=== PATIENT | female | born 1985 | race Caucasian/White ===

== ENCOUNTER 2021-01-18 08:48 | Outpatient (REF) | payer MEDICAID, OTHER, SELFPAY ==
--- NOTE | ~2021-01-18 | US_ITS ---
EXAMINATION: US PELVIS CLINICAL INFORMATION: Right lower quadrant abdominal tenderness. COMPARISON: None TECHNIQUE: Ultrasound of the pelvis is performed using both transabdominal and transvaginal transducers along with Doppler. Transvaginal imaging is performed due to inadequate visualization transabdominally. FINDINGS: The uterus is anteverted and anteflexed measuring 8.4 cm in length, 4.3 cm in AP and 5.3 cm transverse dimension. There is an IUD located within the endometrial canal. The IUD limits evaluation of the endometrial stripe. There are small nabothian cysts seen in the cervix. The right ovary measures 3.22 x 3.32 x 3.00 cm and volume 16.8 mL. There is anechoic simple cyst measuring 1.5 x 1.7 x 1.8 cm. The left ovary measures 3.04 x 1.56 x 2.38 cm and volume 5.91 mL. Left ovary appears unremarkable. There is increased vascular flow seen in the right adnexa likely pelvic venous congestion. There is no free fluid in the cul-de-sac. US/US pelvic and transvaginal IMPRESSION: IUD in correct place within the endometrial canal. Multiple small nabothian cysts in the cervix. Simple cyst right ovary.
== END 2021-01-18 08:49 | disposition home or self-care (01) ==
LOC: HO.HMGCX 08:48
PROVIDERS: PCP Student in an Organized Health Care Education/Training Program; Visit Provider Advanced Practice Midwife
DX: R10.813 Right lower quadrant abdominal tenderness (principal)
CPT/HCPCS: 76830; 76856

== ENCOUNTER 2022-03-17 10:26 | Outpatient (REF) | payer MEDICAID, OTHER, SELFPAY ==
--- NOTE | ~2022-03-17 | US_ITS ---
EXAMINATION: US ABDOMEN LIMITED CLINICAL INFORMATION: Right lower quadrant tenderness. COMPARISON: Ultrasound abdomen limited 11/11/2019. TECHNIQUE: Real-time imaging of the right lower quadrant as indicated by patient. FINDINGS: No abnormalities identified in the right lower quadrant patient's area of concern. There are no cystic or solid masses. There are no fluid collections. There is no subcutaneous edema. No hernia is identified. US/US abdomen limited IMPRESSION: Unremarkable examination.
== END 2022-03-17 10:27 | disposition home or self-care (01) ==
LOC: HO.HMGCX 10:26
PROVIDERS: Visit Provider Pediatrics
DX: R10.813 Right lower quadrant abdominal tenderness (principal)
CPT/HCPCS: 76705

== ENCOUNTER 2022-12-26 14:40 | Outpatient (REF) | payer MEDICAID, OTHER, SELFPAY ==
[2022-12-28 21:53] LABS: HPV mRNA E6/E7 rflx Detected (Not Detected)
[2023-01-02 17:33] LABS: HPV 16 RNA NOT DETECTED (NOT DETECTED)
== END 2022-12-26 14:41 | disposition home or self-care (01) ==
LOC: HO.HHCLNP 14:40
PROVIDERS: Visit Provider Advanced Practice Midwife
DX: Z12.4 Encounter for screening for malignant neoplasm of cervix (principal); Z11.51 Encounter for screening for human papillomavirus (HPV)
CPT/HCPCS: 87624; 87625; 88142

== ENCOUNTER 2023-05-14 11:34 | Outpatient (REF) | payer MEDICAID, OTHER, SELFPAY ==
[2023-05-15 07:16] LABS: ~HepC Num1 0.11 S/CO (0.00-0.79); ~Hepatitis C Antibody Nonreactive (Nonreactive)
[2023-05-17 18:44] LABS: HIV RNA PCR Qn Copies Not Detected Copies/mL; HIV RNA PCR Qn Log Copies Not Detected Log cps/mL
== END 2023-05-14 11:35 | disposition home or self-care (01) ==
LOC: HO.HMGCLDS 11:34
PROVIDERS: PCP Student in an Organized Health Care Education/Training Program; Visit Provider Student in an Organized Health Care Education/Training Program
DX: Z00.00 Encounter for general adult medical examination without abnormal findings (principal); Z11.4 Encounter for screening for human immunodeficiency virus [HIV]; R73.03 Prediabetes
CPT/HCPCS: 36415; 80048; 80061; 80076; 83036; 86803; 87536; 87900

== ENCOUNTER 2023-09-10 13:22 | Outpatient (REF) | payer MEDICAID, OTHER, SELFPAY ==
[2023-09-11 23:13] LABS: C. trachomatis RNA TMA NOT DETECTED (NOT DETECTED); N. gonorrhoeae RNA TMA NOT DETECTED (NOT DETECTED)
== END 2023-09-10 13:23 | disposition home or self-care (01) ==
LOC: HO.CHCLNP 13:22
PROVIDERS: Visit Provider Student in an Organized Health Care Education/Training Program
DX: N93.9 Abnormal uterine and vaginal bleeding, unspecified (principal)
CPT/HCPCS: 36415; 81513; 87491; 87591

== ENCOUNTER 2023-09-11 09:01 | Outpatient (REF) | payer MEDICAID, OTHER, SELFPAY ==
[2023-09-11 10:34] LABS: Estimated Average Glucose 303 mg/dL; Hemoglobin A1c % 12.2 % (<6.0)
[2023-09-11 10:53] LABS: Alanine Aminotransferase 25 U/L (0-31); Alkaline Phosphatase 64 U/L (39-117); Anion Gap 15 (12-20); Aspartate Amino Transferase 16 U/L (5-31); Bilirubin Direct 0.1 mg/dL (0.0-0.5); Bilirubin Total 0.4 mg/dL (0.0-1.0); Blood Urea Nitrogen 9 mg/dL (9-16); Calcium 9.8 mg/dL (8.4-10.2); Carbon Dioxide 24 mmol/L (22-29); Chloride 102 mmol/L (96-108); Cholesterol 197 mg/dL (<200); Estimated Glomerular Filt Rate > 60; Glucose Random 341 mg/dL (60-115); HDL Cholesterol 35 mg/dL (>40); LDL Cholesterol Calculated 128 mg/dL (<100); Potassium 4.1 mmol/L (3.3-5.1); Sodium 137 mmol/L (135-145); Total Protein 7.7 g/dL (6.5-8.0); Triglycerides 170 mg/dL (<150)
== END 2023-09-11 09:02 | disposition home or self-care (01) ==
LOC: HO.HMGCLDS 09:01
PROVIDERS: PCP Student in an Organized Health Care Education/Training Program; Visit Provider Student in an Organized Health Care Education/Training Program
DX: R73.03 Prediabetes (principal)
CPT/HCPCS: 36415; 80048; 80061; 80076; 83036

== ENCOUNTER 2023-09-26 17:04 | Outpatient (REF) | payer MEDICAID, OTHER, SELFPAY ==
[2023-09-27 11:21] LABS: Bacterial Vaginosis PCR NEGATIVE (Negative); Candida Group PCR DETECTED (Not Detect); Candida glab krusei PCR NOT DETECTED (Not Detect); Trichomonas vaginalis PCR NOT DETECTED (Not Detect)
== END 2023-09-26 17:05 | disposition home or self-care (01) ==
LOC: HO.HHCLNP 17:04
PROVIDERS: Visit Provider Advanced Practice Midwife
DX: N89.8 Other specified noninflammatory disorders of vagina (principal)
CPT/HCPCS: 0352U

== ENCOUNTER 2023-10-23 11:27 | Outpatient (REF) | payer MEDICAID, OTHER, SELFPAY ==
--- NOTE | ~2023-10-23 | US_ITS ---
EXAMINATION: US PELVIS CLINICAL INFORMATION: Vaginal bleeding. COMPARISON: 01/18/2021. TECHNIQUE: Ultrasound of the pelvis is performed using both transabdominal and transvaginal transducers along with Doppler. Transvaginal imaging is performed due to inadequate visualization transabdominally. FINDINGS: The uterus is anteverted and measures 8.1 x 2.4 x 3.8 cm. No discrete fibroid identified. Limited visualization of the uterus, particularly the fundus, due to bowel gas and positioning. Endometrial thickness is 5 mm. No significant free fluid. Right ovary measures 2.3 x 1.8 x 1.8 cm, volume 4.0 mL. Left ovary measures 3.1 x 1.9 x 2.2 cm, volume 13.0 mL. Visualization of bilateral ovaries limited due to bowel gas. No significant free fluid. US/US pelvic and transvaginal IMPRESSION: 1. Endometrial thickness is 5 mm. 2. No discrete fibroid identified. 3. Visualization of the uterus, particularly the fundus, due to bowel gas and positioning. 4. Visualization of bilateral ovaries limited due to bowel gas. Left ovary is larger than right. 5. No significant free fluid.
== END 2023-10-23 11:28 | disposition home or self-care (01) ==
LOC: HO.US 11:27
PROVIDERS: PCP Student in an Organized Health Care Education/Training Program; Visit Provider Student in an Organized Health Care Education/Training Program
DX: N93.9 Abnormal uterine and vaginal bleeding, unspecified (principal)
CPT/HCPCS: 76830; 76856

== ENCOUNTER 2023-12-31 16:34 | Outpatient (REF) | payer MEDICAID, OTHER, SELFPAY ==
[2024-01-02 11:13] LABS: HPV mRNA E6/E7 Not Detected (Not Detected)
== END 2023-12-31 16:35 | disposition home or self-care (01) ==
LOC: HO.HHCLNP 16:34
PROVIDERS: Visit Provider Advanced Practice Midwife
DX: Z12.4 Encounter for screening for malignant neoplasm of cervix (principal)
CPT/HCPCS: 36415; 87624; 88175

== ENCOUNTER 2024-05-15 09:40 | Outpatient (REF) | payer MEDICAID, OTHER, SELFPAY ==
[2024-05-15 14:54] LABS: Alanine Aminotransferase 17 U/L (0-31); Alkaline Phosphatase 63 U/L (39-117); Anion Gap 11 (12-20); Aspartate Amino Transferase 32 U/L (5-31); Bilirubin Direct 0.2 mg/dL (0.0-0.5); Bilirubin Total 0.4 mg/dL (0.0-1.0); Blood Urea Nitrogen 9 mg/dL (9-16); Calcium 9.2 mg/dL (8.4-10.2); Carbon Dioxide 25 mmol/L (22-29); Chloride 108 mmol/L (96-108); Cholesterol 201 mg/dL (<200); Estimated Glomerular Filt Rate > 60; Glucose Random 105 mg/dL (60-115); HDL Cholesterol 33 mg/dL (>40); LDL Cholesterol Calculated 141 mg/dL (<100); Potassium 3.9 mmol/L (3.3-5.1); Sodium 140 mmol/L (135-145); Total Protein 7.6 g/dL (6.5-8.0); Triglycerides 136 mg/dL (<150)
== END 2024-05-15 09:41 | disposition home or self-care (01) ==
LOC: HO.CHCLDS 09:40
PROVIDERS: Visit Provider Student in an Organized Health Care Education/Training Program
DX: E11.65 Type 2 diabetes mellitus with hyperglycemia (principal)
CPT/HCPCS: 36415; 80048; 80061; 80076

== ENCOUNTER 2024-08-13 10:36 | Outpatient (REF) | payer MEDICAID, OTHER, SELFPAY ==
--- OUTSIDE RECORDS SUMMARY | 2024-08-13 12:07 | XMS_ITS | Encounter Summary ---
Author Organization [employer] Address [address] [facility] 7t [place] [address] Care Team Providers Care Laborer Cheesemaking Name Role Phone Anisa Swann MD Primary Care Provider [phone] Reason for Visit * Reason Onset Date Comments Med Refill 04/14/2024 Encounter Details Date Type Department Care Team (Late st Contact Info) Description 04/14/2024 Refill [facility] MEDICINE [address] [place], [place] [id number] Shelia Weldon, RUI [address] [place] [address] Social History Tobacco Use Types Packs/Day Years Used Date Smoking Tobacco: Never Smokeless Tobacco: Never Alcohol Use Standard Drinks/Week Comments Never 0 (1 standard drink = 0.6 oz pur e alcohol) Housing Stability Answer Date Recorded What is your housing situation today? I have nisha robbins 05/03/[address] you li ve. Do you have problems with any of the following? None of the above 05/03/2023 Food Insecurity Answer Date Recorded Within the past 12 months, y ou worried that your food would run out before you got money to buy more: Never True 05/03/2023 Within the past 12 months,th e food you bought just didn't last and you didn't have enough money to get more: Never True Transportation Answer Date Recorded In the past 12 months, has l ack of transportation kept you from medical appts, meetings, work or from getting things needed for daily living? No 05/03/2023 Utilities Answer Date Recorded In the past 12 months, has t he electric, gas, oil or water [employer] threatened to shut off services in your home? No 05/03/2023 Comments No Sex and Gender Information Value Date Recorded Sex Assigned at Female 03/06/2022 10:27 AM EDT Legal Sex Female 10:27 AM EDT Gender Identity Female 03/06/2022 10:27 AM EDT Sexual Orientation Choose not to disclose 2021 10:27 AM EDT documented as of this encounter Plan of Treatment Upcoming Encounters Date Type Department Care Team (Late st Contact Info) Description 11/12/2024 11:15 AM EDT Telemedicine [facility] MED & PEDS [address] [place] [address] Anisa Swann MD [address] [place] [address] documented as of this encounter Visit Diagnoses Not on filedocumented in this encounter Care Teams Laborer Cheesemaking Relationship Specialty Start Date End Date Anisa Swann MD [address] [place] [address] PCP - General Family Medicine 04/07/15 documented as of this encounter
--- OUTSIDE RECORDS SUMMARY | 2024-08-13 12:07 | XMS_ITS | Encounter Summary ---
Author Organization [employer] Address [address] [facility] [address]t [place] [address] Care Team Providers Care Coal Gasification Technician Name Role Phone Anisa Swann MD Primary Care Provider [phone] Encounter Details Date Type Department Care Team (Late st Contact Info) Description 02/28/2024 Orders Only [facility] MED & PEDS [address] [place] [address] César Caba MD [address] [place] [address] Social History Tobacco Use Types Packs/Day Years [...] t he electric, gas, oil or water company threatened to shut off services in your [...] Info) Description 11/12/2024 11:15 AM EDT Telemedicine [facility] MED & PEDS [address] [place] [address] Anisa Swann MD [address] [place] [address] documented as of this encounter Visit Diagnoses Not on filedocumented in this encounter Care Teams Coal Gasification Technician Relationship Specialty Start Date End Date Anisa Swann MD [address] [place] [id number] PCP - General Family Medicine 04/07/15 documented as of this encounter
--- OUTSIDE RECORDS SUMMARY | 2024-08-13 12:07 | XMS_ITS | Clinical Summary ---
Author Organization [facility] Address [address] [place] [address] Care Team Providers Care Multiple Knife Edge Trimmer Operator Name Role Phone Anisa Swann Primary Care Provider [phone] Allergies No known active allergies Medications fexofenadine (LD) 180 mg tablet Take 180 mg by mouth as needed. Active diphenhydrAMINE (BENADRYL) 25 mg capsule Take 25 mg by mouth as needed. Active Active Problems Problem Noted Date Diagnosed Date Abdominal wall bulge 01/21/2021 Irritation of external ear canal, right 10/11/19 18 Encounters Date Type Department Care Team Description 05/15/2024 Transcribe Orders [facility] Physician Referral Services [address] [place] [address] Anisa Swann Routine podiatry visit (Primary Dx); Type 2 diabetes mellitus with hyperglycemia, without long-term current use of insulin from Last 3 Months Social History Tobacco Use Types Packs/Day Years Used Date Smoking Tobacco: Never Smokeless Tobacco: Never Alcohol Use Standard Drinks/Week Comments No 0 (1 standard drink = 0.6 oz pur e alcohol) Comments Unknown Sex and Gender Information Value Date Recorded Sex Assigned at Not on file Legal Sex Female 10:15 AM EDT Gender Identity Female 09/21/2017 10:18 AM EDT Sexual Orientation Not on file Last Filed Vital Signs Vital Sign Reading Time Taken Comments Blood Pressure 117/71 01/21/2021 8:52 AM EDT Pulse 80 01/21/2021 8:52 AM EDT Temperature - - Respiratory Rate 16 10/10/2017 10:08 AM EDT Oxygen Saturation - - Inhaled Oxygen Concentration - - Weight 93.9 kg (207 lb) 01/21/2021 8:52 AM EDT Height 165.1 cm (5' 5 ) 10/10/2017 10:08 AM EDT Body Mass Index 34.45 10/10/2017 10:08 AM EDT Plan of Treatment Health Maintenance Due Date Last Done Comments HPV and Pap Smear 1985 Hemoglobin A1C 1985 Ophthalmology Exam 11/26/1995 Urine Microalbumin 11/26/1995 Varicella Vaccines (1 of 2 - 13+ 2-dose series) 1998 Hepatitis B Vaccines (1 of 3 - 19+ 3-dose series) 2004 Pneumococcal Vaccine: Pediat kenyon (0-5 Years) and At-Risk Patients (6-50 Years) (1 of 2 - PCV) 2004 COVID-19 Vaccine (2023-2 5 season) 2024 01/18/2021, 12/28/2020 Alcohol/Substance Use Screening 05/07/2024 Depression Screening and Follow-Up 05/07/2024 Social Drivers of Health Patito ual Screening 05/07/2024 Basic Metabolic Panel 09/10/2024 09/11/2023 Cervical Cancer Screening 12/26/2025 Pap Smear 12/26/2025 12/26/2022 DTaP,Tdap,and Td Vaccines (3 - Td or Tdap) 05/19/2026 05/19/2016, 11/21/2013 RSV Vaccine (60+ years old a nd patients) (1 - 1-dose 75+ series) 2060 HIV Screening Completed 05/14/2023 Hepatitis C Screening Completed 05/14/2023 Influenza Vaccine Completed 01/23/2024, , 02/06/2022, Additional history exists Insurance [employer] HSNO/FREE CARE Care Teams Multiple Knife Edge Trimmer Operator Relationship Specialty Start Date End Date Anisa Swann [address] [place] [id number] PCP - General Family Medicine 09/21/17
--- OUTSIDE RECORDS SUMMARY | 2024-08-13 12:07 | XMS_ITS | Encounter Summary ---
Author Organization [employer] Address [address] [facility] [address] 7t [place] [address] Care Team Providers Care Residential Sales Rep Name Role Phone Anisa Swann MD Primary Care Provider [phone] Reason for Visit * Reason Onset Date Comments Nurse Triage 07/14/2024 Encounter Details Date Type Department Care Team ([facility] st Contact Info) Description 07/14/2024 Telephone [facility] MEDICINE [address] [place] [address] Anisa Swann MD [address] [place] [address] Nurse Triage Social History Tobacco Use Types Packs/Day Years Used Date Smoking Tobacco: Never Passive Smoke Exposure: Never Smokeless Tobacco: Never Alcohol Use Standard Drinks/Week Comments Never 0 (1 standard drink = 0.6 oz pur e alcohol) Housing Stability Answer Date Recorded What is your housing situation today? I have nishaalexandre robbins 05/03/[address] you [...] AM EDT documented as of this encounter Miscellaneous Notes * Telephone Encounter - Sarah Stewart LPN - 07/14/2024 8:50 AM EDT Triage call returned to patient who reported onset of illness on last with a slight sore throat now with body aches fever and right ear pain, No drainage from ear but ear is painful. No shortness of breath has cough no phlegm color noted. Daughter with Flu last week. Disposition reviewed and appt in [facility] offered and declined due to late day. [facility] hours and availability provided for patient evaluation. Triage nurse informed the patient may have a wait of 1-2 hours because Walk In [facility] may have delays due to patient volume or symptom acuity. Insurance verified as active. Multiple (2) protocols were used on this call. Disposition for Call: See in Office or Video Visit Today Protocol Used: Earache (Adult) Protocol-Based Disposition: See in Office or Video Visit Today Positive Triage Question: * Diabetes mellitus or a weak immune system (e.g., HIV positive, cancer chemotherapy, transplant patient) * All higher-acuity triage questions were negative Care Advice Discussed: * Pain Medicines * Reasons To Call Back - You become worse Protocol Used: Influenza (Flu) Exposure (Adult) Protocol-Based Disposition: See in Office or Video Visit within 3 Days Video visit not offered Positive Triage Question: * Patient wants to be seen * All higher-acuity triage questions were negative Care Advice Discussed: * Reasons To Call Back - You have more questions * Telephone Encounter - Anastasiya Medina - 07/14/2024 8:28 AM EDT Symptoms: Body Aches, Earache, Nausea But No Vomiting, Outer Ear Symptoms - Not From Injury, Cough,Fever Outcome: Schedule a same-day appointment or talk to a nurse or provider today Reason: Caller denied all higher acuity questions The caller accepted this outcome. [phone] *denied educational interpreter documented in this encounter Plan of Treatment Upcoming Encounters Date Type Department Care Team (Late st Contact Info) Description 11/12/2024 11:15 AM EDT Telemedicine [facility] MED & PEDS [address] [place] [address] Anisa Swann MD [address] [place] [address] documented as of this encounter Visit Diagnoses Not on filedocumented in this encounter Care Teams Residential Sales Rep Relationship Specialty Start Date End Date Anisa Swann MD [address] [place] [id number] PCP - General Family Medicine 04/07/15 documented as of this encounter
--- OUTSIDE RECORDS SUMMARY | 2024-08-13 12:07 | XMS_ITS | Encounter Summary ---
Author Organization [employer] Address [address] [facility] 7t [place] [address] Care Team Providers Care Forestry Tree Pruner Name Role Phone Anisa Swann MD Primary Care Provider [phone] Reason for Visit * Reason Onset Date Comments Med Refill 12/26/2023 Encounter Details Date Type Department Care Team ([facility] st Contact Info) Description 12/26/2023 Refill [facility] CHC MED & PEDS [address] [place] [address] César Caba MD [address] [place] [address] Social History Tobacco Use Types Packs/Day Years [...] Info) Description 11/12/2024 11:15 AM EDT Telemedicine [facility] MED & PEDS [address] [place] [address] Anisa Swann MD [address] [place] [address] documented as of this encounter Visit Diagnoses Not on filedocumented in this encounter Care Teams Forestry Tree Pruner Relationship Specialty Start Date End Date Anisa Swann MD [address] [place] [address] PCP - General Family Medicine 04/07/15 documented as of this encounter
--- OUTSIDE RECORDS SUMMARY | 2024-08-13 12:07 | XMS_ITS | Encounter Summary ---
Author Organization [employer] Address [address] [facility] [address] [place] [address] Care Team Providers Care Tabulating Clerk Name Role Phone Anisa Swann MD Primary Care Provider [phone] Reason for Visit * Reason Onset Date Comments Chart Prep 08/12/2024 Encounter Details Date Type Department Care Team ([facility] st Contact Info) Description 08/12/2024 Telephone [facility] CHC MED & PEDS [address] [place], [place] [phone] Anisa Swann MD [address] [place] [address] Chart Prep Social History Tobacco Use Types Packs/Day Years [...] encounter Miscellaneous Notes * Telephone Encounter - Cintia Mehta [place] - 08/12/2024 4:29 PM EDT Chart Prep Labs: not applicable Images: done Vaccines due: yes Referrals: complete Screenings: eye exam, STI screening, and LMP Overdue care gaps: SBIRT, SDOH, PHQ-9, Oral health screening, Disability screen, and Tobacco documented in this encounter Plan of Treatment Upcoming Encounters Date Type Department Care Team (Late st Contact Info) Description 11/12/2024 11:15 AM EDT Telemedicine [facility] MED & PEDS [address] [place] [address] Anisa Swann MD [address] [place] [address] documented as of this encounter Visit Diagnoses Not on filedocumented in this encounter Care Teams Tabulating Clerk Relationship Specialty Start Date End Date Anisa Swann MD [address] [place] [phone] PCP - General Family Medicine 04/07/15 documented as of this encounter
--- OUTSIDE RECORDS SUMMARY | 2024-08-13 12:07 | XMS_ITS | Encounter Summary ---
Author Organization [employer] Address [address] [facility] [address] 7[address] [place] [address] Care Team Providers Care Chucking And Boring Machine Operator Name Role Phone Anisa Swann MD Primary Care Provider [phone] Encounter Details Date Type Department Care Team (Latest Contact Info) Description 08/13/2024 Travel Social History Tobacco Use Types Packs/Day Years [...] Info) Description 11/12/2024 11:15 AM EDT Telemedicine [facility] CHC MED & PEDS [address] [place] [address] Anisa Swann MD [address] [place] [address] documented as of this encounter Visit Diagnoses Not on filedocumented in this encounter Care Teams Chucking And Boring Machine Operator Relationship Specialty Start Date End Date Anisa Swann MD [address] [place] [phone] PCP - General Family Medicine 04/07/15 documented as of this encounter
--- OUTSIDE RECORDS SUMMARY | 2024-08-13 12:07 | XMS_ITS | Encounter Summary ---
Author Organization [employer] Address [address] [facility] 7t [place] [address] Care Team Providers Care Warp Scouring Vat Tender Name Role Phone Anisa Swann MD Primary Care Provider [phone] Encounter Details Date Type Department Care Team (Late st Contact Info) Description 11/19/2023 Orders Only [facility] CHC MED & PEDS [address] [place] [address] César Caba MD [address] [place] [address] Social History Tobacco Use Types Packs/Day Years [...] Info) Description 11/12/2024 11:15 AM EDT Telemedicine [facility] CHC MED & PEDS [address] [place] [address] Anisa Swann MD [address] [place] [address] documented as of this encounter Visit Diagnoses Not on filedocumented in this encounter Care Teams Warp Scouring Vat Tender Relationship Specialty Start Date End Date Anisa Swann MD [address] [place] [address] PCP - General Family Medicine 04/07/15 documented as of this encounter
--- OUTSIDE RECORDS SUMMARY | 2024-08-13 12:07 | XMS_ITS | Clinical Summary ---
Author Organization [employer] Address [address] [facility] [address] [place] [address] Care Team Providers Care Quality Inspector Name Role Phone Anisa Swann MD Primary Care Provider [phone] Allergies No known active allergies Medications liver oil-zinc oxide (Desitin) 40 % ointment Apply topically if needed for irritation. 397 g 08/15/19 24 Active pen needle 30G x 5 mm misc Use as instructed 100 each 12 11/21/19 24 025 Active norethindrone (Ortho Micronor) 0.35 MG tablet TAKE 1 TABLET BY MOUTH EVERY MORNING. TAKE AT THE SAME TIME EACH DAY. 84 tablet 3 12/31/19 24 Active metFORMIN (Glucophage) 1000 MG tablet Take 1 tablet (1,000 mg) by mouth with breakfast and with evening meal. 180 tablet 3 03/05/20 24 025 Active pseudoephedrin e (Sudafed) 30 MG tablet Take 1 tablet (30 mg) by mouth every 4 (four) hours if needed for congestion for up to 10 days. 30 tablet 03/05/20 24 Active albuterol 108 (90 Base) MCG/ACT inhaler Inhale 2 puffs every 4 (four) hours if needed for wheezing. 18 g 03/05/20 24 025 Active ibuprofen 600 MG tablet TAKE ONE TABLET THREE TIMES DAILY 90 tablet 06/16/19 25 Active Tirzepatide-We ight Management (Zepbound) 7.5 MG/0.5ML solution auto-injector Inject 0.5 mL (7.5 mg) under the skin 1 (one) time per week. 2 mL 08/14/19 25 Active Tirzepatide-We ight Management (Zepbound) 2.5 MG/0.5ML solution auto-injector Inject 0.5 mL (2.5 mg) under the skin 1 (one) time per week. 2 mL 11 05/09/19 25 025 Discontinued Tirzepatide 5 MG/0.5ML solution auto-injector Inject 5 mg under the skin 1 (one) time per week. 2 mL 2 06/30/19 25 025 Discontinued terbinafine (LamISIL) 250 MG tablet Take 1 tablet (250 mg) by mouth Once per day. 30 tablet 06/30/19 25 025 oseltamivir (Tamiflu) 75 MG capsule Take 1 capsule (75 mg) by mouth 2 times daily for 5 days. 10 capsule 07/15/19 025 ondansetron (Zofran) 4 MG tablet Take 1 tablet (4 mg) by mouth every 8 (eight) hours if needed for nausea for up to 7 days. 20 tablet 07/15/19 025 Active Problems Problem Noted Date Diagnosed Date Type 2 diabetes mellitus wit h hyperglycemia, without long-term current use of insulin 11/21/2023 Assessment & Plan (11/21/2023 9:18 AM EDT): A1c 12.2%, average glucose at home above 300's, will increase metformin to 1000mg bid, Will start on wegovy, patient will benefit from decrease in cardiovascular disease, weight loss and diabetes control. Will send glipizide until wegovy is approved, told she can start taking it today with meals Side effects discussed. Follow up with pcp already scheduled 01/04/24 Prediabetes 09/10/2023 Acute vaginitis 08/15/2023 Assessment & Plan (08/15/2023 2:49 PM EDT): Evidence of bacterial/fungal infection. Prescribing Desitin ointment, Flagyl, Diflucan. Follow up if symptoms worsen. Relevant Medications: Fluconsazole (Deflucan) 150 MG tablet Liver oil-zinc ( Desitin) 40% ointment Metronidazole (Flagyl) 500 MG tablet Abdominal wall bulge 01/21/2021 Ventral hernia without obstruction or gangrene 0 10/16/2017 Irritation of external ear canal, right 10/11/19 18 Encounters Date Type Department Care Team Description 08/13/2024 10:00 AM EDT Office Visit [facility] [address] [place] [address] Anisa Swann MD Type 2 diabetes mellitus without complication, without long-term current use of insulin ([facility]) (Primary Dx); Class 1 obesity with serious comorbidity and body mass index (BMI) of 30.0 to 30.9 in adult, unspecified obesity type 08/13/2024 Travel 08/12/2024 Telephone [facility] [address] [place] [address] Anisa Swann MD Chart Prep 08/06/[address] [address] Pal Meyer, PharmD 07/14/2024 10:40 AM EDT Office Visit [facility] [address] [place] [phone] Name, MD Apolinar Flu (Primary Dx); Fever, unspecified fever cause; Myalgia; Nausea 07/14/[address] [address] Anisa Swann MD Nurse Triage 06/30/2024 Orders Only [facility] [address] [place] [address] César Caba MD 06/30/2024 Orders Only [facility] [address] [place] [address] César Caba MD 06/18/2024 10:00 AM EST Office Visit [facility] [address] [place] [address] Chente Elias DMD Dental caries (Primary Dx) 06/13/2024 Telephone [facility] [address] [place] [address] Anisa Swann MD Prior Authorization 06/13/2024 Telephone [facility] [address] [place] [address] Anisa Swann MD Med Refill 06/13/2024 Refill [facility] [address] [place] [address] César Caba MD 05/30/2024 Orders Only [facility] [address] [place] [address] Anisa Swann MD 05/28/2024 Refill [facility] [address] [place] [address] Anisa Swann MD 05/16/2024 10:00 AM EST Office Visit [facility] [address] [place] [address] Chente Elias DMD 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 hoahaoism (Primary Dx) 05/16/2024 Telephone [facility] [address] [place] [address] Anisa Swann MD 05/15/2024 9:30 AM EST Office Visit [facility] [address] [place] [address] Anisa Swann MD Type 2 diabetes mellitus with hyperglycemia, without long-term current use of insulin ([facility]) (Primary Dx); Class 1 obesity with serious comorbidity in adult, unspecified BMI, unspecified obesity type; Onychomycosis 05/15/2024 Travel from Last 3 Months Immunizations Name Administration Dates Next Due HPV 9-Valent 07/19/2023,02/15/2023,01/15/2023 Influenza Injectable Quadriv alant Preservative Free IIV4 MDCK 02/06/2023,02/06/2022 Influenza injectable quadriv alent IIV4 with preservative 03/05/2019,02/27/2018 Influenza injectable quadriv alent preservative free 02/25/2021,01/26/2020 Influenza, Injectable, MDCK, preservative free 01/23/2024 Influenza, seasonal, injecta ble, preservative free 02/21/2016 Tdap 05/19/2016,11/21/2013,11/17/2013 Family History Medical History Relation Name Comments Colon cancer Father Relation Name Status Comments Father Social History Tobacco Use Types Packs/Day Years Used Date Smoking Tobacco: Never Passive Smoke Exposure: Never Smokeless Tobacco: Never Tobacco Cessation:Counseling Given: Not Answered Alcohol Use Standard Drinks/Week Comments Never 0 [...] not to disclose 2021 10:27 AM EDT Last Filed Vital Signs Vital Sign Reading Time Taken Comments Blood Pressure 114/70 08/13/2024 10:20 AM EDT Pulse 88 08/13/2024 10:20 AM EDT Temperature 36.7 ??C (98.1 ??F) 08/13/2024 10:20 AM E DT Respiratory Rate 20 08/13/2024 10:20 AM EDT Oxygen Saturation 98% 08/13/2024 10:20 AM EDT Inhaled Oxygen Concentration - - Weight 81.6 kg (180 lb) 08/13/2024 10:20 AM EDT Height 165.1 cm (5' 5 ) 08/13/2024 10:20 AM EDT Body Mass Index 29.95 08/13/2024 10:20 AM EDT Plan of Treatment Upcoming Encounters Date Type Department Care Team (Late st Contact Info) Description 11/12/2024 11:15 AM EDT Telemedicine [facility] [address] [place] [address] Anisa Swann MD [address] [place] [address] Health Maintenance Due Date Last Done Comments Depression Screening 1985 HIV Screening 1985 Eye Exam 11/26/1995 Alcohol/Substance Use Screening 1997 Diabetes: Urine Protein Screening 2004 Hepatitis B Vaccines (1 of 3 - 19+ 3-dose series) 2004 Pneumococcal Vaccine: Pediatrics (0 to 5 Years) and At-Risk Patients (6 to 49) Years) (1 of 2 - PCV) 2004 COVID-19 Vaccine ( season) 2024 01/18/2021, 12/28/2020 SDOH Screening 05/03/2024 05/03/2023 Dental Oral Exam 10/18/2024 04/18/2024, , 08/02/2017, Additional history exists Dental Prophylaxis 10/18/2024 04/18/2024, 1 07/02/2017, 07/03/2017, Additional history exists Cervical Cancer Screening 12/30/2024 Family Planning (PISQ) 12/30/2024 12/31/2023 HPV/Cotest 12/30/2024 12/31/2023, 12/06, 10/21/2019 Pap Smear 12/30/2024 12/31/2023, 12/06, 10/21/2019 Diabetes: Hemoglobin A1C 02/12/2025 025, 05/15/2024, 01/04/2024, Additional history exists Dental X-Ray: Bitewings 04/19/2025 04/18/20 24, 07/15/2019, 03/25/2019, Additional history exists Diabetes: Foot Exam 05/15/2025 05/15/2024 Lipid Panel 05/15/2025 05/15/2024, 05/0 11/2023, 05/14/2023, Additional history exists Tobacco Screening 07/14/2025 07/14/2024 DTaP/Tdap/Td Vaccines (4 - Td or Tdap) 05/19/2026 05/19/2016, 11/21/2013, 11/17/2013 Dental X-Ray: Full Mouth 04/22/2027 024, 04/18/2024, 03/25/2019, Additional history exists Zoster Vaccines (1 of 2) 11/26/2035 RSV Patients and Patients Aged 60 years or older (1 - 1-dose 75+ series) 2060 Hepatitis C Screening Completed 05/14/2023 HPV Vaccines Completed 07/19/2023, 02/04, 01/15/2023 Influenza Vaccine Completed 01/23/2024, , 02/06/2022, Additional history exists HIB Vaccines Aged Out No longer eligi ble based on patient's age to complete this topic Hepatitis A Vaccines Aged Out No long er eligible based on patient's age to complete this topic IPV Vaccines Aged Out No longer eligi ble based on patient's age to complete this topic Meningococcal Vaccine Aged Out No darnell joe eligible based on patient's age to complete this topic RSV under 20 months Aged Out No longe r eligible based on patient's age to complete this topic Rotavirus Vaccines Aged Out No longer eligible based on patient's age to complete this topic Procedures Procedure Name Priority Date/Time Associated Diagnosis Comments POCT GLYCATED HEMOGLOBIN, TOTAL Routine 08/13/2024 10:33 AM EDT Type 2 diabetes mellitus without complication, without long-term current use of insulin ([facility]) POCT GLUCOSE Routine 08/13/2024 10:32 AM EDT Type 2 diabetes mellitus without complication, without long-term current use of insulin ([facility]) POCT RAPID STREP A Routine 07/14/2024 9: 51 AM EDT Fever, unspecified fever cause Myalgia POCT RAPID COVID ANTIGEN Routine 07/14/2024 9:51 AM EDT Fever, unspecified fever cause Myalgia POCT INFLUENZA A (ID NOW RAPID MOLECULAR) Routine 07/14/2024 9:51 AM EDT Fever, unspecified fever cause Myalgia POCT INFLUENZA B (ID NOW RAPID MOLECULAR) Routine 07/14/2024 9:51 AM EDT Fever, unspecified fever cause Myalgia CASE PRESENTATION, DETAILED AND EXTENSIVE TREATMENT PLANNING Routine 06/18/2024 10:00 AM EST Dental caries 5 DO RESIN-BASED COMPOSITE - 2 SURF, POSTERIOR Routine 06/18/2024 10:00 AM EST Dental caries CASE PRESENTATION, DETAILED AND EXTENSIVE TREATMENT PLANNING Routine 05/16/2024 10:00 AM EST 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 hoahaoism 14 MOL RESIN-BASED COMPOSITE - 3 SURF, POSTERIOR Routine 05/16/2024 10:00 AM EST 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 hoahaoism 13 MOD RESIN-BASED COMPOSITE - 3 SURF, POSTERIOR Routine 05/16/2024 10:00 AM EST 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 hoahaoism 12 DO RESIN-BASED COMPOSITE - 2 SURF, POSTERIOR Routine 05/16/2024 10:00 AM EST 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 hoahaoism HEPATIC FUNCTION PANEL Routine 05/15/2024 9:41 AM EST Type 2 diabetes mellitus with hyperglycemia, without long-term current use of insulin (CMS/HCC) LIPID PANEL, STANDARD Routine 05/15/2024 9:41 AM EST Type 2 diabetes mellitus with hyperglycemia, without long-term current use of insulin (CMS/HCC) BASIC METABOLIC PANEL Routine 05/15/2024 9:41 AM EST Type 2 diabetes mellitus with hyperglycemia, without long-term current use of insulin (CMS/HCC) POCT GLYCATED HEMOGLOBIN, TOTAL Routine 05/15/2024 9:23 AM EST Type 2 diabetes mellitus with hyperglycemia, without long-term current use of insulin (CMS/HCC) POCT GLUCOSE Routine 05/15/2024 9:22 AM EST Type 2 diabetes mellitus with hyperglycemia, without long-term current use of insulin (CMS/HCC) AMB REFERRAL TO PODIATRY Urgent 05/15/2024 Type 2 diabetes mellitus with hyperglycemia, without long-term current use of insulin ([facility]) PANORAMIC RADIOGRAPHIC IMAGE Routine 04/21/2024 11:00 AM EST Dental caries Pain due to dental caries PROPHYLAXIS - ADULT Routine 04/18/2024 1 0:00 AM EST INTRAORAL - COMPLETE SERIES OF RADIOGRAPHIC IMAGES Routine 04/18/2024 10:00 AM EST PERIODIC ORAL EVALUATION - ESTABLISHED PATIENT Routine 04/18/2024 10:00 AM EST THINPREP IMAGING PAP AND HPV MRNA E6/E7 Routine 12/31/2023 11:09 AM EDT HEPATITIS C AB W/REFL TO HCV RNA, QN, PCR Routine 05/14/2023 11:58 AM EST PE (physical exam), annual from Last 3 Months or Most Recently Relevant to Health Maintenance Results * (ABNORMAL) POCT A1C (08/13/2024 10:33 AM EDT) Only the most recent of2 resultswithin the time period is included. Hemoglobin A1C 6.4(A) 4.0 - 6.0 % QC Media Lot # Comment:[id number] Lot# Expiration Date Comment:03/25/2026 Blood 08/13/2024 10:3 3 AM EDT us Anisa Swann MD POINT OF CARE TEST ENTER/EDIT OR DERABLES Final Result * POCT glucose manually resulted (08/13/2024 10:32 AM EDT) Only the most recent of2 resultswithin the time period is included. Glucose Blood, POC 121 60 - 200 mg/dL QC Media Lot # Comment:[id number] Lot# Expiration Date Comment:11/06/2024 Blood Capillary blood specimen / Unknown 08/13/2024 10:32 AM EDT us Anisa Swann MD POINT OF CARE TEST ENTER/EDIT OR DERABLES Final Result * Influenza B (ID NOW Rapid Molecular) (07/14/2024 9:51 AM EDT) [facility] Influenza B Negative Negative, Indeterminate [facility] Swab 07/14/2024 9:51 AM EDT us Apolinar Coates MD POINT OF CARE TEST ENTER/EDIT OR DERABLES Final Result Performing Organization Address [facility] Co de Phone Number [facility] [address] [place] [phone] * (ABNORMAL) Influenza A (ID NOW Rapid Molecular) (07/14/2024 9:51 AM EDT) [facility] Influenza A Positive( A) Negative, Indeterminate [facility] Swab 07/14/2024 9:51 AM EDT us Apolinar Coates MD POINT OF CARE TEST ENTER/EDIT OR DERABLES Final Result Performing Organization Address [facility] Co de Phone Number [facility] [address] [place] [phone] * POCT Rapid COVID Ag (07/14/2024 9:51 AM EDT) [facility] Rapid COVID Ag Negative Swab 07/14/2024 9:51 AM EDT us Apolinar Coates MD POINT OF CARE TEST ENTER/EDIT OR DERABLES Final Result * POCT rapid strep A manually resulted (07/14/2024 9:51 AM EDT) [facility] Rapid Strep A Screen Negative Negative, None Detected Swab 07/14/2024 9:51 AM EDT Result Claritza Coates MD POINT OF CARE TEST ENTER/EDIT OR DERABLES Final Result * (ABNORMAL) Hepatic Function Panel (05/15/2024 9:41 AM EST) Bilirubin, Total 0.4 0.0 - 1.0 mg/dL [facility] Bilirubin, Direct 0.2 0.0 - 0.5 mg/dL [facility] Aspartate Amino Transferase 32(H) 5 - 31 U/L [facility] Alanine Aminotransferase 17 0 - 31 U/L [facility] Total Protein 7.6 6.5 - 8.0 g/dL [facility] Albumin Level 4.0 3.5 - 5.0 g/dL [facility] Alkaline Phosphatase 63 39 - 117 U/L [facility] Blood Venous blood specimen / Unknown 05/15/2024 9:41 AM EST 05/15/2024 2:07 PM EST us Anisa Swann MD LAB BLOOD ORDERABLES Final Resul t Performing Organization Address City/State/[facility] Co de Phone Number [facility] [address] [place] [phone] * (ABNORMAL) Lipid Panel, Standard (05/15/2024 9:41 AM EST) Triglycerides 136 <150 mg/dL [facility] Comment:Desirable Triglyceri de: less than 150 mg/dLBorderline High Triglyceride 150-199 mg/dLHigh Triglyceride: 200-499 mg/dLVery High Triglyceride: greater than or equal to 5OO mg/dL Cholesterol 201(H) <200 mg/dL [facility] Comment:Desirable Cholestero l: less than 200 mg/dLBorderline High Cholesterol: 200-239 mg/dLHigh Cholesterol: greater than 239 mg/dL LDL Cholesterol Calculated 141(H) <100 mg/dL [facility] Comment:Desirable LDL: less than 100 mg/dLNear Optimal/Above Optimal LDL: 110- 129 mg/dLBorderline High LDL: 130-159 mg/dLHigh LDL: 160-189 mg/dLVery High LDL: greater than or equal to 190 mg/dL HDL Cholesterol 33(L) >40 mg/dL [facility] Comment:Desirable HDL: great er than 40 mg/dL Note: This HDL assay may give artificially low results in patients with liver disease. Blood Venous blood specimen / Unknown 05/15/2024 9:41 AM EST 05/15/2024 2:07 PM EST Anisa Swann MD LAB BLOOD ORDERABLES Final Resul t Performing Organization Address City/[facility]/ZIP Co de Phone Number [facility] [address] [place] [phone] * (ABNORMAL) Basic Metabolic Panel (05/15/2024 9:41 AM EST) Sodium 140 135 - 145 mmol/L [facility] Potassium 3.9 3.3 - 5.1 mmol/L [facility] Chloride 108 96 - 108 mmol/L [facility] Carbon Dioxide 25 22 - 29 mmol/L [facility] Anion Gap 11(L) 12 - 20 [facility] Urea Nitrogen (BUN) 9 9 - 16 mg/dL [facility] Creatinine, Serum 0.67 0.5 - 1.4 mg/dL [facility] Estimated Glomerular Filt Rate >60 [facility] Comment:Chronic Kidney Disea se: Estimated GFR < 60 mL/min/[id number] Kidney Disease: Estimated GFR < 15 mL/min/1.73m2 Glucose 105 60 - 115 mg/dL [facility] Calcium 9.2 8.4 - 10.2 mg/dL [facility] Blood Venous blood specimen / Unknown 05/15/2024 9:41 AM EST 05/15/2024 2:07 PM EST Anisa Swann MD LAB BLOOD ORDERABLES Final Resul t Performing Organization Address City/[facility]/ZIP Co de Phone Number [facility] [address] [place] [phone] * Referral to Podiatry (05/15/2024) us Anisa Swann MD OUTPATIENT REFERRAL ORDERABLES F inal Result * ThinPrep Imaging Pap and HPV mRNA E6/E7 (12/31/2023 11:09 AM EDT) HPV nRNA E6/E7 Not Detected Not Detected [facility] Comment:Methodology: Transcr iption-Mediated AmplificationThis assay detects E6/E7 viral messenger RNA (mRNA) from 14high-risk HPV types (16,18,31,33,35,39,45,51,52,56,58,59,66,68).Cervical sources are required for HPV testing.If a vaginal source from a patient who has had atotal hysterectomy with removal of cervix wassubmitted, please contact the testing laboratoryfor alternative testing options.For additional information, please refer [email or web address]/YYU285c9(This link if provided for information/educational purposes only.)THIS TEST WAS PERFORMED AT:[employer] [address] [phone] LAMB MD SOURCE: SEE NOTE [facility] Comment:Cervix Report Status: [facility] Clinical Information: SEE NOTE [facility] Comment:Routine exam LMP: SEE NOTE [facility] Comment:12/09/2023 Prev. PAP: SEE NOTE [facility] Comment:2022 Prev. BX: SEE NOTE [facility] Comment:NONE GIVEN Statement Of Adequacy: SEE NOTE [facility] Comment:Satisfactory for raheem luation.Endocervical/transformation zone componentpresent. General Categorization: [facility] Interpretation/Result: SEE NOTE [facility] Comment:Cytology Results: Ne gative for intraepitheliallesion or malignancy. Cytology Comment SEE NOTE [facility] Comment:This Pap test has be en evaluated with computerassisted technology. Pipe Roller: SEE NOTE [facility] Comment:BK,CT(ASCP)CT screen ing location: [address] Review Pipe Roller: [facility] Pathologist [facility] PAP Infection [facility] See Note SEE NOTE [facility] Comment:EXPLANATORY NOTE:The Pap is a screening test for cervical cancer. It isnot a diagnostic test and is subject to false negativeand false positive results. It is most reliable when asatisfactory sample, regularly obtained, is submittedwith relevant clinical findings and history, and whenthe Pap result is evaluated along with historic andcurrent clinical information. 12/31/2023 11:0 9 AM EDT 12/31/2023 4:36 PM EDT Narrative [facility] - 01/02/2024 12:21 PM EDT SEE SCANNED RESULTS IN [id number] us Shelia Weldon CNM LAB PATHOLOGY ORDERABLES Final Result Performing Organization Address [facility] Co de Phone Number [facility] [address] [place] [phone] * Hepatitis C Antibody with Reflex to HCV, RNA, Quantitative, Real-Time PCR (05/14/2023 11:58 AM EST) Hepatitis C Antibody Nonreactive Nonreactive [facility] Comment:Antibodies to HCV no t detected; does not exclude early acuteHCV infection. Blood Venous blood specimen / Unknown 05/14/2023 11:58 AM EST 05/14/2023 1:31 PM EST us Anisa Swann MD LAB BLOOD ORDERABLES Final Resul t Performing Organization Address City/[facility] Co de Phone Number [facility] [address] [place] [phone] from Last 3 Months or Most Recently Relevant to Health Maintenance Insurance [facility] LIMITED ADULT DENTAL - HSN FULL (MEDICAID) Care Teams Quality Inspector Relationship Specialty Start Date End Date Anisa Swann MD [address] [place] [phone] PCP - General Family Medicine 04/07/15
--- OUTSIDE RECORDS SUMMARY | 2024-08-13 12:07 | XMS_ITS | Referral Summary ---
Author Organization [facility] Address [address] [place] [address] Care Team Providers Care Central Office Supervisor Name Role Phone Anisa Swann Primary Care Provider [phone] Encounters Date Type Department Care Team Description 05/15/2024 Transcribe Orders [facility] Referral [facility] [address] [place] [address] Anisa Swann Routine podiatry visit (Primary Dx); Type 2 diabetes mellitus with hyperglycemia, without long-term current use of insulin from Last 3 Months Allergies No known active allergies Medications fexofenadine (LD) 180 mg tablet Take 180 mg by mouth as needed. Active diphenhydrAMINE (BENADRYL) 25 mg capsule Take 25 mg by mouth as needed. Active Active Problems Problem Noted Date Diagnosed Date Abdominal wall bulge 01/21/2021 Irritation of external ear canal, right 10/11/19 18 Social History Tobacco Use Types Packs/Day Years [...] 10/10/2017 10:08 AM EDT Plan of Treatment Not on file Insurance [facility] HSNO/FREE CARE Care Teams Central Office Supervisor Relationship Specialty Start Date End Date Anisa wSann [address] [place] [phone] PCP - General Family Medicine 09/21/17
--- OUTSIDE RECORDS SUMMARY | 2024-08-13 12:07 | XMS_ITS | Encounter Summary ---
Author Organization [employer] Address [address] [facility] [address] [place] [address] Care Team Providers Care Cashier Assistant Name Role Phone Anisa Swann MD Primary Care Provider [phone] Reason for Visit * Reason Onset Date Comments Med Refill 05/28/2024 Encounter Details Date Type Department Care Team (Late st Contact Info) Description 05/28/2024 Refill [facility] [address] [place], [place] [phone] Anisa Swann MD [address] [place] [address] Social History Tobacco Use Types Packs/Day Years [...] Info) Description 11/12/2024 11:15 AM EDT Telemedicine [facility] [address] [place] [address] Anisa Swann MD [address] [place] [address] documented as of this encounter Visit Diagnoses Not on filedocumented in this encounter Care Teams Cashier Assistant Relationship Specialty Start Date End Date Anisa Swann MD [address] [place] [phone] PCP - General Family Medicine 04/07/15 documented as of this encounter
--- OUTSIDE RECORDS SUMMARY | 2024-08-13 12:07 | XMS_ITS | Encounter Summary ---
Author Organization [employer] Address [address] [facility] 7t [place] [address] Care Team Providers Care Vp Organizational Development Name Role Phone Anisa Swann MD Primary Care Provider [phone] Reason for Visit * Reason Comments Follow-up Dm Weight Management Encounter Details Date Type Department Care Team ([facility] st Contact Info) Description 08/13/2024 10:00 AM EDT Office Visit [facility] CH[facility] MED & PEDS [address] [place], [place] [phone] Anisa Swann MD [address] [place] [address] Type 2 diabetes mellitus without complication, without long-term current use of insulin ([facility]) (Primary Dx); Class 1 obesity with serious comorbidity and body mass index (BMI) of 30.0 to 30.9 in adult, unspecified obesity type Social History Tobacco Use Types Packs/Day Years [...] enough money to get more: Never True 12/ Transportation Answer Date Recorded In the past [...] AM EDT documented as of this encounter Last Filed Vital Signs Vital Sign Reading [...] Mass Index 29.95 08/13/2024 10:20 AM EDT documented in this encounter Progress Notes * Anisa Swann MD - 08/13/2024 10:00 AM EDT Subjective Patient ID: Paula Rivera is a 38 y.o. female who presents for Follow-up (Dm ) and Weight Management. Diabetes She presents for her follow-up diabetic visit. She has type 2 diabetes mellitus. Her disease coursehas been stable. There are no hypoglycemic associated symptoms. Pertinent negatives for hypoglycemia include no headaches or sweats. There are no diabetic associated symptoms. Pertinent negatives fordiabetes include no blurred vision and no chest pain. There are no hypoglycemic complications. Symptoms are stable. There are no diabetic complications. Risk factors for coronary artery disease include family history and sedentary lifestyle. Current diabetic treatment includes insulin injections and oral agent (monotherapy). She is compliant with treatment all of the time. Review of Systems Constitutional: Negative. Eyes: Negative for blurred vision. Respiratory: Negative. Negative for shortness of breath. Cardiovascular: Negative for chest pain and palpitations. Gastrointestinal: Negative. Genitourinary: Negative. Musculoskeletal: Negative for neck pain. Neurological: Negative for headaches. Objective Physical Exam Constitutional: Appearance: Normal appearance. Cardiovascular: Rate and Rhythm: Normal rate and regular rhythm. Pulses: Normal pulses. Heart sounds: Normal heart sounds. Pulmonary: Effort: Pulmonary effort is normal. Abdominal: General: Abdomen is flat. Neurological: Mental Status: She is alert. Assessment/Plan Diagnoses and all orders for this visit: Class 1 obesity with serious comorbidity and body mass index (BMI) of 30.0 to 30.9 in adult, unspecified obesity type Comments: Zepbound increased to 7.5mg Patient currently on pharmacotherapy to assist with management of her weight. Starting weight:215 lb Current weight:180 lb Review continue lifestyle modifications. Patient was titrated up to treatment dose. Tolerated titration well. Patient was transitioned to Zepbound given change in preferred agent by patient???s insurance and medication efficacy. Reviewed mechanism of action with patient. Discussed side effects with patient: nausea, vomiting, diarrhea & risk of pancreatitis. No contraindications identified: , hx of pancreatitis, hx of medullary thyroid cancer or MEN 2. Discussed calorie deficit, recommended reduction of 20-30% of maintenance calories; biofuels processing technician referral offered. Recommended to decrease soda and sugary beverage consumption. Recommended at least 20 g per meal of protein to assist with satiety. Recommended at least 150 min/week of moderate intensity exercise. Type 2 diabetes mellitus without complication, without long-term current use of insulin ([facility]) Comments: Cont Metformin Advised Low sugar and Low carb diet. Counseled regarding self-monitoring of blood glucose. Counseled re: potential co-morbidities including cardiovascular disease. Counseled re: potential co-morbidities include neuropathy and retinopathy. Counseled re: potential co-morbidities include nephropathy. Orders: - POCT A1C - POCT glucose manually resulted - Basic Metabolic Panel; Future - Lipid Panel, Standard; Future - Hepatic Function Panel; Future Other orders - Tirzepatide-Weight Management (Zepbound) 7.5 MG/0.5ML solution auto-injector; Inject 0.5 mL (7.5 mg) under the skin 1 (one) time per week. documented in this encounter Plan of Treatment Upcoming Encounters Date Type Department Care Team (Late st Contact Info) Description 11/12/2024 11:15 AM EDT Telemedicine [facility] MED & PEDS [address] [place] [address] Anisa Swann MD [address] [place] [address] Scheduled Orders Name Type Priority Associated Diagnoses Orde r Schedule Basic Metabolic Panel Lab Routine Type 2 diabetes mellitus without complication, without long-term current use of insulin ([facility]) Expected: 08/13/2024 (Approximate), Expires: 08/13/2025 Lipid Panel, Standard Lab Routine Type 2 diabetes mellitus without complication, without long-term current use of insulin (CMS/HCC) Expected: 08/13/2024 (Approximate), Expires: 08/13/2025 Hepatic Function Panel Lab Routine Type 2 diabetes mellitus without complication, without long-term current use of insulin (CMS/HCC) Expected: 08/13/2024 (Approximate), Expires: 08/13/2025 documented as of this encounter Procedures Procedure Name Priority Date/Time Associated Diagnosis Comments POCT GLYCATED HEMOGLOBIN, TOTAL Routine 08/13/2024 10:33 AM EDT Type 2 diabetes mellitus without complication, without long-term current use of insulin ([facility]) POCT GLUCOSE Routine 08/13/2024 10:32 AM EDT Type 2 diabetes mellitus without complication, without long-term current use of insulin ([facility]) documented in this encounter Results * (ABNORMAL) POCT A1C (08/13/2024 10:33 AM EDT) Hemoglobin A1C 6.4(A) 4.0 - 6.0 % QC Media Lot # Comment:[id number] Lot# Expiration Date Comment:03/25/2026 Blood 08/13/2024 10:3 3 AM EDT Anisa Swann MD POINT OF CARE TEST ENTER/EDIT OR DERABLES Final Result * POCT glucose manually resulted (08/13/2024 10:32 AM EDT) Glucose Blood, POC 121 60 - 200 mg/dL QC Media Lot # Comment:[id number] Lot# Expiration Date Comment:11/06/2024 Blood Capillary blood specimen / Unknown 08/13/2024 10:32 AM EDT Anisa Swann MD POINT OF CARE TEST ENTER/EDIT OR DERABLES Final Result documented in this encounter Visit Diagnoses Diagnosis Type 2 diabetes mellitus without complication, without long-term current use of insulin ([facility])- Primary Class 1 obesity with serious comorbidity and body mass index (BMI) of 30.0 to 30.9 in adult, unspecified obesity type documented in this encounter Care Teams Vp Organizational Development Relationship Specialty Start Date End Date Anisa Swann MD [address] [place] [id number] PCP - General Family Medicine 04/07/15 documented as of this encounter
--- OUTSIDE RECORDS SUMMARY | 2024-08-13 12:07 | XMS_ITS | Encounter Summary ---
Author Organization [employer] Address [address] [facility] [address] 7t [place] [address] Care Team Providers Care Stained Glass Painter Name Role Phone Anisa Swann MD Primary Care Provider [phone] Encounter Details Date Type Department Care Team (Late st Contact Info) Description 08/06/2024 Telephone [facility] MEDICINE [address] [place], [place] [phone] Pal Meyer, PharmD [address] [place] [address] Social History Tobacco Use Types Packs/Day Years [...] encounter Miscellaneous Notes * Telephone Encounter - Anisa Swann MD - 08/07/2024 8:39 AM EDT Please inform pts * Telephone Encounter - Pal Meyer PharmD - 08/06/2024 3:04 PM EDT Incoming message from insurance--> [employer] will no longer cover weight loss medications starting August 19. Patient is currently using Zepbound and will need to be transitioned to alt. medication or find other insurance coverage. documented in this encounter Plan of Treatment Upcoming Encounters Date Type Department Care Team (Late st Contact Info) Description 11/12/2024 11:15 AM EDT Telemedicine [facility] MED & PEDS [address] [place] [address] Anisa Swann MD [address] [place] [address] documented as of this encounter Visit Diagnoses Not on filedocumented in this encounter Care Teams Stained Glass Painter Relationship Specialty Start Date End Date Anisa Swann MD [address] [place] [id number] PCP - General Family Medicine 04/07/15 documented as of this encounter
[2024-08-13 15:12] LABS: Alanine Aminotransferase 10 U/L (0-31); Albumin Level 4.3 g/dL (3.5-5.0); Alkaline Phosphatase 59 U/L (39-117); Anion Gap 9 (12-20); Aspartate Amino Transferase 24 U/L (5-31); Bilirubin Direct 0.2 mg/dL (0.0-0.5); Bilirubin Total 0.3 mg/dL (0.0-1.0); Blood Urea Nitrogen 11 mg/dL (9-16); Calcium 9.5 mg/dL (8.4-10.2); Carbon Dioxide 24 mmol/L (22-29); Chloride 109 mmol/L (96-108); Cholesterol 207 mg/dL (<200); Estimated Glomerular Filt Rate > 60; Glucose Random 96 mg/dL (60-115); HDL Cholesterol 37 mg/dL (>40); LDL Cholesterol Calculated 142 mg/dL (<100); Potassium 4.2 mmol/L (3.3-5.1); Sodium 138 mmol/L (135-145); Total Protein 7.9 g/dL (6.5-8.0); Triglycerides 142 mg/dL (<150)
== END 2024-08-13 10:37 | disposition home or self-care (01) ==
LOC: HO.CHCLDS 10:36
PROVIDERS: Visit Provider Student in an Organized Health Care Education/Training Program
DX: E11.9 Type 2 diabetes mellitus without complications (principal)
CPT/HCPCS: 36415; 80048; 80061; 80076

== ENCOUNTER 2024-12-31 10:12 | Outpatient (REF) | payer MEDICAID, OTHER, SELFPAY ==
--- OUTSIDE RECORDS SUMMARY | 2024-12-30 13:15 | XMS_ITS | Encounter Summary ---
Author Organization [employer] Address [address] [facility] 7t [place] [address] Care Team Providers Care Frame Bender Name Role Phone César Caba MD Primary Care Prov ider Reason for Referral * Neurology (Routine) - Authorized Specialty Diagnoses / Procedures Referred By Contac t Referred To Contact Diagnoses Tingling Procedures EMG César Caba MD [address] [place] [address] Phone: tel: fax: [address] Phone: tel: fax: Referral ID Status Reason Start Date Expiration Date V isits Requested Visits Authorized [id number] Authorized 12/30/2024 12/30/2025 1 1 Encounter Details Date Type Department Care Team (Late st Contact Info) Description 12/30/2024 1:15 PM EDT Telemedicine [facility] CHC MED & PEDS [address] [place] [address] César Caba MD [address] [place], [place] [phone] Tingling (Primary Dx) Social History Tobacco Use Types Packs/Day Years Used Date Smoking Tobacco: Never Passive Smoke Exposure: Never Smokeless Tobacco: Never Alcohol Use Standard Drinks/Week Comments Never 0 (1 standard drink = 0.6 oz pur e alcohol) Housing Stability Answer Date Recorded What is your housing situation today? I have nisha robbins 11/12/[address] you li ve. Do you have problems with any of the following? None of the above 11/12/2024 Food Insecurity Answer Date Recorded Within the past 12 months, y ou worried that your food would run out before you got money to buy more: Never True 11/12/2024 Within the past 12 months,th e food you bought just didn't last and you didn't have enough money to get more: Never True 01/2025 Transportation Answer Date Recorded In the past 12 months, has l ack of transportation kept you from medical appts, meetings, work or from getting things needed for daily living? No 11/12/2024 Utilities Answer Date Recorded In the past 12 months, has t he electric, gas, oil or water company threatened to shut off services in your home? No 11/12/2024 Internet Access Answer Date Recorded Internet Access Q1 No 11/12/2024 Internet Access Q2 I do not want or need it 01/2025 Comments No Sex and Gender Information Value Date Recorded Sex Assigned at Female 03/06/2022 10:27 AM EDT Legal Sex Female 10:27 AM EDT Gender Identity Female 03/06/2022 10:27 AM EDT Sexual Orientation Choose not to disclose 2021 10:27 AM EDT documented as of this encounter Progress Notes * César Silver MD - 12/30/2024 1:15 PM EDT Subjective Patient ID: Paula Rivera is a 39 y.o. female who presents for No chief complaint on file.. Tingling This is a chronic problem. Pertinent negatives include no arthralgias, chills, congestion, fatigue,vomiting or weakness. Review of Systems Constitutional: Negative for chills and fatigue. HENT: Negative for congestion. Gastrointestinal: Negative for vomiting. Musculoskeletal: Negative for arthralgias. Neurological: Positive for tingling. Negative for weakness. Objective Physical Exam Neurological: General: No focal deficit present. Mental Status: She is oriented to person, place, and time. Psychiatric: Mood and Affect: Mood normal. Behavior: Behavior normal. Assessment/Plan Problem List Items Addressed This Visit None Visit Diagnoses Tingling - Primary Right hand thumb and index finger tingling, will order EMG and vitamin b12 levels, will call with results Relevant Orders Vitamin B12 (Cobalamin) and Folate Panel, Serum Iron And Total Iron Binding Capacity EMG documented in this encounter Plan of Treatment Upcoming Encounters Date Type Department Care Team (Late st Contact Info) Description 01/12/2025 10:30 AM EDT Procedure Visit [facility] MEDICINE [address] [place], [place] [phone] Shelia Weldon CNM [address] [place], [place] [phone] 05/08/2025 10:00 AM EST Office Visit [facility] CHC ADULT DENTAL [address] [place], [place] [phone] Barbara Clarke Scheduled Orders Name Type Priority Associated Diagnoses Orde r Schedule Vitamin B12 (Cobalamin) and Folate Panel, Serum Lab Routine Tingling Expected: 12/30/2024 (Approximate), Expires: 12/30/2025 Iron And Total Iron Binding Capacity Lab Routine Tingling Expected: 12/30/2024, Expires: 12/30/2025 EMG Neurology Routine Tingling Expected: 12/30/2024, Expires: 07/02/2025 documented as of this encounter Visit Diagnoses Diagnosis Tingling- Primary Disturbance of skin sensation documented in this encounter Care Teams Frame Bender Relationship Specialty Start Date End Date César Caba MD [address] [place] [address] PCP - General Internal Medicine 12/17/24 documented as of this encounter
--- OUTSIDE RECORDS SUMMARY | 2024-12-31 11:00 | XMS_ITS | Encounter Summary ---
Author Organization [employer] Address [address] [facility] 7t [place] [address] Care Team Providers Care Brake Repair Mechanic Name Role Phone Anisa Swann MD Primary Care Provider [phone] César Caba MD Primary Care Prov ider Reason for Visit * Reason Onset Date Comments Med Refill 04/14/2024 Encounter Details Date Type Department Care Team (Late st Contact Info) Description 04/14/2024 Refill [facility] MEDICINE [address] [place] [address] Shelia Weldon, CN [address] [place], [place] [phone] Social History Tobacco Use Types Packs/Day Years [...] Description 01/12/2025 10:30 AM EDT Procedure Visit [facility] MEDICINE [address] [place] [address] Sehlia Weldon CNM [address] [place] [address] 05/08/2025 10:00 AM EST Office Visit [facility] CHC ADULT DENTAL [address] [place] [address] Barbara Clarke documented as of this encounter Visit Diagnoses Not on filedocumented in this encounter Care Teams Brake Repair Mechanic Relationship Specialty Start Date End Date Anisa Swann MD [address] [place] [address] PCP - General Family Medicine 04/07/15 12/16/24 César Caba MD [address] [place] [address] PCP - General Internal Medicine 12/17/24 documented as of this encounter
--- OUTSIDE RECORDS SUMMARY | 2024-12-31 11:00 | XMS_ITS | Encounter Summary ---
Author Organization [employer] Address [address] [facility] 7t [place] [address] Care Team Providers Care Emergency Room Doctor Name Role Phone Anisa Swann MD Primary Care Provider [phone] César Caba MD Primary Care Prov ider Reason for Visit * Reason Onset Date Comments Nurse Triage 07/14/2024 Encounter Details Date Type Department Care Team (Late st Contact Info) Description 07/14/2024 Telephone [facility] MEDICINE [address] [place] [address] Anisa Swann MD [address] [place] [address] Nurse Triage Social History Tobacco Use Types [...] last week. Disposition reviewed and appt in [facility] offered and declined due to late day. [facility] Walk In Center hours and availability provided [...] more questions * Telephone Encounter - Anastasiya Suzy Medina - 07/14/2024 8:28 AM EDT Symptoms: Body Aches, Earache, Nausea But No Vomiting, Outer Ear Symptoms - Not From Injury, Cough,Fever Outcome: Schedule a same-day appointment or talk to a nurse or provider today Reason: Caller denied all higher acuity questions The caller accepted this outcome. [phone] *denied proposal rep documented in this encounter Plan of Treatment Upcoming Encounters Date Type Department Care Team (Late st Contact Info) Description 01/12/2025 10:30 AM EDT Procedure Visit [facility] MEDICINE [address] [place] [address] Shelia Weldon CNM [address] [place] [address] 05/08/2025 10:00 AM EST Office Visit [facility] CHC ADULT DENTAL [address] [place] [address] Barbara Clarke documented as of this encounter Visit Diagnoses Not on filedocumented in this encounter Care Teams Emergency Room Doctor Relationship Specialty Start Date End Date Anisa Swann MD [address] [place] [address] PCP - General Family Medicine 04/07/15 12/16/24 César Caba MD [address] [place] [address] PCP - General Internal Medicine 12/17/24 documented as of this encounter
--- OUTSIDE RECORDS SUMMARY | 2024-12-31 11:00 | XMS_ITS | Encounter Summary ---
Author Organization [employer] Address [address] [facility] 7t [place] [address] Care Team Providers Care Servomechanism Designer Name Role Phone Anisa Swann MD Primary Care Provider [phone] César Caba MD Primary Care Prov ider Encounter Details Date Type Department Care Team (Late st Contact Info) Description 02/28/2024 Orders Only [facility] CHC MED & PEDS [address] [place] [place], [place] [phone] César Caba MD [address] [place] [address] Social History Tobacco Use Types Packs/Day Years [...] Description 01/12/2025 10:30 AM EDT Procedure Visit [facility] MEDICINE [address] [place] [address] Shelia Weldon CNM [address] [place] [address] 05/08/2025 10:00 AM EST Office Visit [facility] CHC ADULT DENTAL [address] [place] [address] Barbara Clarke documented as of this encounter Visit Diagnoses Not on filedocumented in this encounter Care Teams Servomechanism Designer Relationship Specialty Start Date End Date Anisa Swann MD [address] [place] [address] PCP - General Family Medicine 04/07/15 12/16/24 César Caba MD [address] [place] [address] PCP - General Internal Medicine 12/17/24 documented as of this encounter
--- OUTSIDE RECORDS SUMMARY | 2024-12-31 11:00 | XMS_ITS | Encounter Summary ---
Author Organization [employer] Address [address] [facility] 7t [place] [address] Care Team Providers Care Mini Baccarat Dealer Name Role Phone Anisa Swann MD Primary Care Provider [phone] César Caba MD Primary Care Prov ider Reason for Visit * Reason Onset Date Comments Med Refill 12/26/2023 Encounter Details Date Type Department Care Team (Late st Contact Info) Description 12/26/2023 Refill [facility] CHC MED & PEDS [address] [place], [place] [phone] César Caba MD [address] [place], [place] [phone] Social History Tobacco Use Types Packs/Day Years [...] Description 01/12/2025 10:30 AM EDT Procedure Visit [facility] MEDICINE [address] [place] [address] Shelia Weldon CNM [address] [place] [address] 05/08/2025 10:00 AM EST Office Visit [facility] CHC ADULT DENTAL [address] [place] [address] Barbara Clarke documented as of this encounter Visit Diagnoses Not on filedocumented in this encounter Care Teams Mini Baccarat Dealer Relationship Specialty Start Date End Date Anisa Swann MD [address] [place] [address] PCP - General Family Medicine 04/07/15 12/16/24 César Caba MD [address] [place] [address] PCP - General Internal Medicine 12/17/24 documented as of this encounter
--- OUTSIDE RECORDS SUMMARY | 2024-12-31 11:00 | XMS_ITS | Clinical Summary ---
Author Organization [employer] Address [address] [facility] 7[address] [place] [address] Care Team Providers Care Stunt Double Name Role Phone César Caba MD Primary Care Prov ider Allergies No known active allergies Medications albuterol 108 (90 Base) MCG/ACT inhaler Inhale 2 puffs every 4 (four) hours if needed for wheezing. 18 g 4 025 Active fexofenadine (Taylor) 180 MG tablet Take 180 mg by mouth if needed. Active ibuprofen 600 MG tablet TAKE ONE TABLET BY MOUTH THREE TIMES DAILY 90 tablet 5 Active metFORMIN (Glucophage) 500 MG tablet Take 1 tablet (500 mg) by mouth with breakfast. 30 tablet 11 5 026 Active terbinafine (LamISIL) 250 MG tablet Take 1 tablet (250 mg) by mouth Once per day. 90 tablet 5 025 Active norethindrone (Micronor) 0.35 MG tablet Take 1 tablet (0.35 mg) by mouth Once per day. 28 tablet 11 5 026 Active phentermine 15 MG capsule Take 1 capsule (15 mg) by mouth before breakfast. 30 capsule 5 025 Active topiramate (Topamax) 50 MG tablet Take 1 tablet (50 mg) by mouth Once per day. 30 tablet 11 5 026 Active Tirzepatide (Mounjaro) 2.5 MG/0.5ML solution auto-injector Inject 2.5 mg under the skin 1 (one) time per week. Start 2.5 mg weekly x 4 weeks, then increase to 5 mg weekly x 4 weeks, then 7.5 mg weekly 2 mL 5 025 Discontinued phentermine 15 MG capsule Take 1 capsule (15 mg) by mouth before breakfast. 30 capsule 5 025 Discontinued topiramate (Topamax) 50 MG tablet Take 1 tablet (50 mg) by mouth Once per day. 30 tablet 11 5 025 Discontinued Active Problems Problem Noted Date Diagnosed Date [...] Encounters Date Type Department Care Team Description 12/30/2024 1:15 PM EDT Telemedicine [facility] [address] [place] [address] César Caba MD Tingling (Primary Dx) 12/30/2024 Travel 12/29/2024 Telephone [facility] [address] [place] [address] César Caba MD triage 12/25/2024 Travel 12/24/2024 Telephone [facility] [address] [place] [address] César Caba MD chart prep 12/17/[address] [address] Yanira Payton, PharmD 12/10/[address] [address] Shelia Weldon, CNKenna 12/10/2024 Orders Only [facility] [address] [place] [address] César Caba MD 12/04/2024 Telephone [facility] [address] [place] [address] Anisa Swann MD 2024 Telephone [facility] [address] [place] [address] Anisa Swann MD Prior Authorization 11/24/2024 9:15 AM EDT Office Visit [address] [address] Taylor Hernandez MD Anxiety (Primary Dx) 11/24/2024 Travel 11/20/2024 9:15 AM EDT Office Visit [address] [address] Taylor Hernandez MD Anxiety (Primary Dx) 11/20/2024 Orders Only [facility] [address] [place] [address] Anisa Swann MD 11/20/2024 Travel 11/18/2024 10:00 AM EDT Office Visit [facility] ADULT DENTAL [address] [place] [address] Chente Elias DMD Dental caries (Primary Dx) 11/12/2024 11:15 AM EDT Office Visit [facility] [address] [place] [address] Anisa Swann MD Type 2 diabetes mellitus with hyperglycemia, without long-term current use of insulin (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) 10/13/2024 Orders Only [facility] [address] [place] [address] Anisa Swann MD 10/09/2024 Refill [facility] [address] [place] [address] Anisa Swann MD 10/07/2024 Telephone [facility] [address] [place] [address] Anisa Swann MD 10/03/2024 Refill [facility] [address] [place] [address] Anisa Swann MD 10/03/2024 Telephone [facility] [address] [place] [address] Anisa Swann MD Prior Authorization 09/30/2024 Orders Only [facility] [address] [place] [address] Anisa Swann MD from Last 3 Months Immunizations Immunization Administration Dates Next Due HPV 9-Valent 07/19/2023,02/15/2023,01/15/2023 Influenza Injectable Quadriv alant Preservative Free IIV4 MDCK 02/06/2023,02/06/2022 Influenza injectable quadriv alent IIV4 with preservative 03/05/2019,02/27/2018 Influenza injectable quadriv alent preservative free 02/25/2021,01/26/2020 Influenza, Injectable, MDCK, preservative free 01/23/2024 Influenza, seasonal, injecta ble, preservative free 02/21/2016 Tdap 05/19/2016,11/21/2013,11/17/2013 Family History Medical History Relation Name Comments Diabetes Father Relation Name Status Comments Father Social [...] Sign Reading Time Taken Comments Blood Pressure 120/66 11/18/2024 10:11 AM EDT Pulse 68 11/12/2024 11:12 AM EDT Temperature 36.3 C (97.3 F) 11/12/2024 11:12 AM EDT Respiratory Rate 18 11/12/2024 11:12 AM EDT Oxygen Saturation 99% 11/12/2024 11:12 AM EDT Inhaled Oxygen Concentration - - Weight 82.6 kg (182 lb) 11/12/2024 11:12 AM EDT Height 165.1 cm (5' 5 ) 11/12/2024 11:12 AM EDT Body Mass Index 30.29 11/12/2024 11:12 AM EDT Plan of Treatment Upcoming Encounters Date Type Department Care Team (Late st Contact Info) Description 01/12/2025 10:30 AM EDT Procedure Visit [facility] MEDICINE [address], [place] [phone] Shelia Weldon CNM [address], [place] [phone] 05/08/2025 10:00 AM EST Office Visit [facility] CHC ADULT DENTAL [address] [place] [address] Barbara Clarke Health Maintenance Due Date Last Done Comments Depression Screening 1985 HIV Screening 1985 Eye Exam 11/26/1995 Family Planning (PISQ) 2000 Diabetes: Urine Protein Screening 2004 Hepatitis B Vaccines (1 of 3 - 19+ 3-dose series) 2004 Pneumococcal Vaccine: Pediatrics (0 to 5 Years) and At-Risk Patients (6 to 49) Years (1 of 2 - PCV) 2004 COVID-19 Vaccine ( - season) 2024 01/18/2021, 12/28/2020 Cervical Cancer Screening 12/30/2024 HPV/Cotest 12/30/2024 12/31/2023, 12/06, 10/21/2019 Pap Smear 12/30/2024 12/31/2023, 12/06, 10/21/2019 Influenza Vaccine (#1) 2025 , 02/06/2023, 02/06/2022, Additional history exists Dental X-Ray: Bitewings 04/19/2025 04/18/20 24, 07/15/2019, 03/25/2019, Additional history exists Dental Prophylaxis 04/30/2025 10/28/2024, 1 06/19/2023, 05/01/2018, Additional history exists Diabetes: Foot Exam 05/15/2025 05/15/2024 Diabetes: Hemoglobin A1C 05/15/2025 025, 08/13/2024, 05/15/2024, Additional history exists Dental Oral Exam 05/22/2025 11/18/2024, , 03/25/2019, Additional history exists Lipid Panel 08/13/2025 08/13/2024, 01/2025, 09/11/2023, Additional history exists Alcohol/Substance Use Screening 11/12/2025 11/12/2024 Disability Screening 11/12/2025 11/12/2024 SDOH Screening 11/12/2025 11/12/2024 Tobacco Screening 12/25/2025 12/25/2024 DTaP/Tdap/Td Vaccines (4 - Td or Tdap) 05/19/2026 05/19/2016, 11/21/2013, 11/17/2013 Dental X-Ray: Full Mouth 04/22/2027 024, 04/18/2024, 03/25/2019, Additional history exists Zoster Vaccines (1 of 2) 11/26/2035 RSV Patients and Patients Aged 60 years or older (1 - 1-dose 75+ series) 2060 Hepatitis C Screening Completed 05/14/2023 HPV Vaccines Completed 07/19/2023, 02/04, 01/15/2023 HIB Vaccines Aged Out No longer eligi ble based on patient's age to complete this topic Hepatitis A Vaccines Aged Out No long er eligible based on patient's age to complete this topic IPV Vaccines Aged Out No longer eligi ble based on patient's age to complete this topic Meningococcal B Vaccine Aged Out No l onger eligible based on patient's age to complete [...] Procedure Name Priority Date/Time Associated Diagnosis Comments CASE PRESENTATION, DETAILED AND EXTENSIVE TREATMENT PLANNING Routine 11/18/2024 10:00 AM EDT Dental caries PERIODIC ORAL EVALUATION - ESTABLISHED PATIENT Routine 11/18/2024 10:00 AM EDT Dental caries 30 DO RESIN-BASED COMPOSITE - 2 SURF, POSTERIOR Routine 11/18/2024 10:00 AM EDT Dental caries 31 MO RESIN-BASED COMPOSITE - 2 SURF, POSTERIOR Routine 11/18/2024 10:00 AM EDT Dental caries POCT GLYCATED HEMOGLOBIN, TOTAL Routine 11/12/2024 11:21 AM EDT Type 2 diabetes mellitus with hyperglycemia, without long-term current use of insulin ([facility]) POCT GLUCOSE Routine 11/12/2024 11:20 AM EDT Type 2 diabetes mellitus with hyperglycemia, without long-term current use of insulin (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) AMB REFERRAL TO PODIATRY Urgent 05/15/2024 Type 2 diabetes mellitus with hyperglycemia, without long-term current use of insulin ([facility]) PANORAMIC RADIOGRAPHIC IMAGE Routine 04/21/2024 11:00 AM EST Dental caries Pain due to dental caries INTRAORAL - COMPLETE SERIES OF RADIOGRAPHIC IMAGES Routine 04/18/2024 10:00 AM EST THINPREP IMAGING PAP AND HPV MRNA E6/E7 Routine 12/31/2023 11:09 AM EDT HEPATITIS C AB W/REFL TO HCV RNA, QN, PCR Routine 05/14/2023 11:58 AM EST PE (physical exam), annual from Last 3 Months or Most Recently Relevant to Health Maintenance Results * (ABNORMAL) POCT HGB A1C (11/12/2024 11:21 AM EDT) Hemoglobin A1C 6.3(A) 4.0 - 5.7 % QC Media Lot # [id number] Lot# Expiration Date Blood 11/12/2024 11:2 1 AM EDT Anisa Swann MD POINT OF CARE TEST ENTER/EDIT OR DERABLES Final Result * POCT Glucose (11/12/2024 11:20 AM EDT) Glucose Blood, POC 127 60 - 200 mg/dL QC Media Lot # [id number] Lot# Expiration Date ,007 Blood Capillary blood specimen / Unknown 11/12/2024 11:20 AM EDT Anisa Swann MD POINT OF CARE TEST ENTER/EDIT OR DERABLES Final Result * (ABNORMAL) Lipid Panel, Standard (08/13/2024 10:37 AM EDT) Triglycerides 142 <150 mg/dL [facility] Comment:Desirable Triglyceri de: less than 150 mg/dLBorderline High Triglyceride 150-199 mg/dLHigh Triglyceride: 200-499 mg/dLVery High Triglyceride: greater than or equal to 5OO mg/dL Cholesterol 207(H) <200 mg/dL [facility] Comment:Desirable Cholestero l: less than 200 mg/dLBorderline High Cholesterol: 200-239 mg/dLHigh Cholesterol: greater than 239 mg/dL LDL Cholesterol Calculated 142(H) <100 mg/dL [facility] Comment:Desirable LDL: less than 100 mg/dLNear Optimal/Above Optimal LDL: 110- 129 mg/dLBorderline High LDL: 130-159 mg/dLHigh LDL: 160-189 mg/dLVery High LDL: greater than or equal to 190 mg/dL HDL Cholesterol 37(L) >40 mg/dL [facility] Comment:Desirable HDL: great er than 40 mg/dL Note: This HDL assay may give artificially low results in patients with liver disease. Blood Venous blood specimen / Unknown 08/13/2024 10:37 AM EDT 08/13/2024 2:51 PM EDT Anisa Swann MD LAB BLOOD ORDERABLES Final Resul t [facility] [address] [place] [address] [phone] * Referral to Podiatry (05/15/2024) Anisa Swann MD OUTPATIENT REFERRAL ORDERABLES F inal Result * ThinPrep Imaging Pap and HPV mRNA E6/E7 (12/31/2023 11:09 AM EDT) HPV nRNA E6/E7 Not Detected Not Detected [facility] Comment:Methodology: Transcr iption-Mediated AmplificationThis assay detects E6/E7 viral messenger RNA (mRNA) from 14high-risk HPV types (16,18,31,33,35,39,45,51,52,56,58,59,66,68).Cervical sources are required for HPV testing.If a vaginal source from a patient who has had atotal hysterectomy with removal of cervix wassubmitted, please contact the testing laboratoryfor alternative testing options.For additional information, please refer tohttp://education.Arcarios/faq/MXU439n1(This link if provided for information/educational purposes only.)THIS TEST WAS PERFORMED AT[facility] [place] [id number] LAMB MD SOURCE: SEE NOTE [facility] Comment:Cervix Report Status: TNP [facility] Clinical Information: SEE NOTE [facility] Comment:Routine exam LMP: SEE NOTE [facility] Comment:12/09/2023 Prev. PAP: SEE NOTE [facility] Comment:2022 Prev. BX: SEE NOTE [facility] Comment:NONE GIVEN Statement Of Adequacy: SEE NOTE [facility] Comment:Satisfactory for raheem luation.Endocervical/transformation zone componentpresent. General Categorization: [facility] Interpretation/Result: SEE NOTE [facility] Comment:Cytology Results: Ne gative for intraepitheliallesion or malignancy. Cytology Comment SEE NOTE [facility] Comment:This Pap test has be en evaluated with computerassisted technology. Field Clerk: SEE NOTE [facility] Comment:BK,CT(ASCP)CT screen ing location: [address] Review Field Clerk: [facility] Pathologist [facility] PAP Infection [facility] See Note SEE NOTE [facility] Comment:EXPLANATORY NOTE:The Pap is a [...] AM EDT 12/31/2023 4:36 PM EDT Narrative [facility] - 01/02/2024 12:21 PM EDT SEE SCANNED RESULTS IN [id number] Shelia Weldon CNM LAB PATHOLOGY ORDERABLES Final Result [facility] [address] [place] [address] [phone] * Hepatitis C Antibody with Reflex to HCV, RNA, Quantitative, Real-Time PCR (05/14/2023 11:58 AM EST) Hepatitis C Antibody Nonreactive Nonreactive [facility] Comment:Antibodies to HCV no t detected; does not exclude early acuteHCV infection. Blood Venous blood specimen / Unknown 05/14/2023 11:58 AM EST 05/14/2023 1:31 PM EST us Anisa Swann MD LAB BLOOD ORDERABLES Final Resul t [facility] [address] [place] [address] [phone] from Last 3 Months or Most Recently Relevant to Health Maintenance Insurance [employer] [place]ENT[place] - [employer] (MEDICAID) Care Teams Stunt Double Relationship Specialty Start Date End Date César Caba MD [address] [place] [id number] PCP - General Internal Medicine 12/17/24
--- OUTSIDE RECORDS SUMMARY | 2024-12-31 11:00 | XMS_ITS | Encounter Summary ---
Author Organization [employer] Address [address] [facility] 7t [place] [address] Care Team Providers Care Chute Tender Name Role Phone Anisa Swann MD Primary Care Provider [phone] César Caba MD Primary Care Prov ider Reason for Visit * Reason Comments Med Refill Encounter Details Date Type Department Care Team (Late st Contact Info) Description 12/10/2024 Refill [facility] MEDICINE [address] [place] [address] Shelia Weldon CNM [address] [place] [address] Social History Tobacco Use Types Packs/Day Years [...] Description 01/12/2025 10:30 AM EDT Procedure Visit [facility] MEDICINE [address] [place] [address] Shelia Weldon CNM [address] [place] [address] 05/08/2025 10:00 AM EST Office Visit [facility] CHC ADULT DENTAL [address] [place] [address] Barbara Clarke documented as of this encounter Visit Diagnoses Not on filedocumented in this encounter Care Teams Chute Tender Relationship Specialty Start Date End Date Anisa Swann MD [address] [place] [address] PCP - General Family Medicine 04/07/15 12/16/24 César Caba MD [address] [place] [address] PCP - General Internal Medicine 12/17/24 documented as of this encounter
--- OUTSIDE RECORDS SUMMARY | 2024-12-31 11:00 | XMS_ITS | Encounter Summary ---
Author Organization [employer] Address [address] [facility] 7t [place] [address] Care Team Providers Care Sales Office Manager Name Role Phone César Caba MD Primary Care Prov ider Reason for Visit * Reason Onset Date Comments triage 12/29/2024 Encounter Details Date Type Department Care Team ([facility] st Contact Info) Description 12/29/2024 Telephone [facility] CHC MED & PEDS [address] [place] [address] César Caba MD [address] [place] [address] triage Social History Tobacco Use Types Packs/Day Years Used Date Smoking Tobacco: Never Passive Smoke Exposure: Never Smokeless Tobacco: Never Alcohol Use Standard Drinks/Week Comments Never 0 (1 standard drink = 0.6 oz pur e alcohol) Housing Stability Answer Date Recorded What is your housing situation today? I have nishaalexandre robbins 11/12/[address] you [...] t he electric, gas, oil or water [employer] threatened to shut off services in your [...] encounter Miscellaneous Notes * Telephone Encounter - Yissel Campbell RN - 12/29/2024 1:04 PM EDT called pt to triage, spoke to pt. pt states several weeks duration of right thumb and index finger numbness. pt denies known injury, previous history, previous carpal tunnel, coolness or pallor of the fingers, or other associated symptoms. advised no available appt to be seen in office for now, andwas given TC appt with PCP tomorrow at 1:15 to discuss and follow up as needed. advised home care: rest,fluids, observe and call back if new or worsening symptoms. pt understands and agrees with plan. insurance verified. Protocol Used: Finger Pain (Adult) Protocol-Based Disposition: See in Office or Video Visit within 2 Weeks Positive Triage Question: * Numbness or tingling is a chronic symptom * All higher-acuity triage questions were negative Care Advice Discussed: * Reasons To Call Back - You become worse * Reassurance and Education - Overuse * Use a Cold Pack for Pain * Telephone Encounter - Linsey Vincent - 12/29/2024 12:27 PM EDT Pt requesting sick visit, states right index finger numb on and off x 1 week . Denies any shoulder/chest pain or any injury. Pls call pt documented in this encounter Plan of Treatment Upcoming Encounters Date Type Department Care Team (Late st Contact Info) Description 01/12/2025 10:30 AM EDT Procedure Visit [facility] MEDICINE [address] [place], [place] [phone] Shelia Weldon CNM [address] [place] [address] 05/08/2025 10:00 AM EST Office Visit [facility] CHC ADULT DENTAL [address] [place] [address] Barbara Clarke documented as of this encounter Visit Diagnoses Not on filedocumented in this encounter Care Teams Sales Office Manager Relationship Specialty Start Date End Date César Caba MD [address] [place] [address] PCP - General Internal Medicine 12/17/24 documented as of this encounter
--- OUTSIDE RECORDS SUMMARY | 2024-12-31 11:00 | XMS_ITS | Encounter Summary ---
Author Organization [employer] Address [address] [facility] 7t [place] [address] Care Team Providers Care Upholstery Cutter Name Role Phone Anisa Swann MD Primary Care Provider [phone] César Caba MD Primary Care Prov ider Encounter Details Date Type Department Care Team (Late st Contact Info) Description 12/10/2024 Orders Only [facility] CHC MED & PEDS [address] [place], [place] [phone] César Caba MD [address] [place] [address] Social History Tobacco Use Types Packs/Day Years [...] 01/12/2025 10:30 AM EDT Procedure Visit [facility] MEDICINE [address] [place] [address] Shelia Weldon CNM [address] [place] [address] 05/08/2025 10:00 AM EST Office Visit [facility] CHC ADULT DENTAL [address] [place] [address] Barbara Clarke documented as of this encounter Visit Diagnoses Not on filedocumented in this encounter Care Teams Upholstery Cutter Relationship Specialty Start Date End Date Anisa Swann MD [address] [place] [address] PCP - General Family Medicine 04/07/15 12/16/24 César Caba MD [address] [place] [address] PCP - General Internal Medicine 12/17/24 documented as of this encounter
--- OUTSIDE RECORDS SUMMARY | 2024-12-31 11:00 | XMS_ITS | Encounter Summary ---
Author Organization [employer] Address [address] [facility] 7t [place] [address] Care Team Providers Care Microfilm Machine Operator Name Role Phone Anisa Swann MD Primary Care Provider [phone] César Caba MD Primary Care Prov ider Reason for Visit * Reason Onset Date Comments Med Refill 05/28/2024 Encounter Details Date Type Department Care Team (Late st Contact Info) Description 05/28/2024 Refill [facility] CHC MED & PEDS [address] [place], [place] [phone] Anisa Swann MD [address] [place], [place] [phone] Social History Tobacco Use Types Packs/Day Years [...] Description 01/12/2025 10:30 AM EDT Procedure Visit [facility] MEDICINE [address] [place] [address] hSelia Weldon CNM [address] [place] [address] 05/08/2025 10:00 AM EST Office Visit [facility] CHC ADULT DENTAL [address] [place] [address] Barbara Clarke documented as of this encounter Visit Diagnoses Not on filedocumented in this encounter Care Teams Microfilm Machine Operator Relationship Specialty Start Date End Date Anisa Swann MD [address] [place] [address] PCP - General Family Medicine 04/07/15 12/16/24 César Caba MD [address] [place] [address] PCP - General Internal Medicine 12/17/24 documented as of this encounter
--- OUTSIDE RECORDS SUMMARY | 2024-12-31 11:00 | XMS_ITS | Clinical Summary ---
Author Organization [facility] Address [address] [place] [address] Care Team Providers Care Document Control Supervisor Name Role Phone Anisa Swann Primary Care Provider [phone] Allergies No known active allergies Medications fexofenadine (LD) 180 mg tablet Take 180 mg by mouth as needed. Active diphenhydrAMINE (BENADRYL) 25 mg capsule Take 25 mg by mouth as needed. Active Active Problems Problem Noted Date Diagnosed Date Abdominal wall bulge 01/21/2021 Irritation of external ear canal, right 10/11/19 Social History Tobacco Use Types Packs/Day Years [...] of 2 - PCV) 2004 COVID-19 Vaccine (3 - 2023-2 5 season) 2024 01/18/2021, 12/28/2020 Alcohol/Substance Use Screening 05/07/2024 Depression Screening and Follow-Up 05/07/2024 Social Drivers of Health Patito ual Screening 05/07/2024 Basic Metabolic Panel 09/10/2024 09/11/2023 Influenza Vaccine (#1) 2025 , 02/06/2023, 02/06/2022, Additional history exists Cervical Cancer Screening 12/26/2025 Pap Smear 12/26/2025 12/26/2022 DTaP,Tdap,and Td Vaccines (3 - Td or Tdap) 05/19/2026 05/19/2016, 11/21/2013 RSV Vaccine (60+ years old a nd patients) (1 - 1-dose 75+ series) 2060 HIV Screening Completed 05/14/2023 Hepatitis C Screening Completed 05/14/2023 Insurance [facility] [id number] HS/FREE CARE Care Teams Document Control Supervisor Relationship Specialty Start Date End Date Anisa Swann [address] [place] [id number] PCP - General Family Medicine 09/21/17
--- OUTSIDE RECORDS SUMMARY | 2024-12-31 11:00 | XMS_ITS | Encounter Summary ---
Author Organization [employer] Address [address] [facility] 7t [place] [address] Care Team Providers Care Federal Appellate Clerk Name Role Phone Anisa Swann MD Primary Care Provider [phone] César Caba MD Primary Care Prov ider Encounter Details Date Type Department Care Team (Late st Contact Info) Description 11/19/2023 Orders Only [facility] [address] [place], [place] [phone] César Caba MD [address] [place] [address] Social History Tobacco Use Types Packs/Day Years [...] Description 01/12/2025 10:30 AM EDT Procedure Visit [facility] [address] [place] [address] Shelia Weldon CNM [address] [place] [address] 05/08/2025 10:00 AM EST Office Visit [facility] [address] [place] [address] Barbara Clarke documented as of this encounter Visit Diagnoses Not on filedocumented in this encounter Care Teams Federal Appellate Clerk Relationship Specialty Start Date End Date Anisa Swann MD [address] [place] [address] PCP - General Family Medicine 04/07/15 12/16/24 César Caba MD 505 [place] [address] PCP - General Internal Medicine 12/17/24 documented as of this encounter
--- OUTSIDE RECORDS SUMMARY | 2024-12-31 11:00 | XMS_ITS | Encounter Summary ---
Author Organization [employer] Address 75 [facility] 7t [place] [address] Care Team Providers Care Reach Lift Truck Driver Name Role Phone César Caba MD Primary Care Prov ider Encounter Details Date Type Department Care Team (Latest Contact Info) Description 12/30/2024 Travel Social History Tobacco Use Types Packs/Day Years Used Date Smoking Tobacco: Never Passive Smoke Exposure: Never Smokeless Tobacco: Never Alcohol Use Standard Drinks/Week Comments Never 0 (1 standard drink = 0.6 oz pur e alcohol) Housing Stability Answer Date Recorded What is your housing situation today? I have nisha itzel 11/12/[address] you li [...] Description 01/12/2025 10:30 AM EDT Procedure Visit [facility] [address] [place] [address] Shelia Weldon CNM [address] [place] [address] 05/08/2025 10:00 AM EST Office Visit [facility] ADULT DENTAL [address] [place] [address] Barbara Clarke documented as of this encounter Visit Diagnoses Not on filedocumented in this encounter Care Teams Reach Lift Truck Driver Relationship Specialty Start Date End Date César Caba MD 505 [place] [address] PCP - General Internal Medicine 12/17/24 documented as of this encounter
--- OUTSIDE RECORDS SUMMARY | 2024-12-31 11:00 | XMS_ITS | Encounter Summary ---
Author Organization [employer] Address [address] [facility] 7t [place] [address] Care Team Providers Care Stereotyper Apprentice Name Role Phone Anisa Swann MD Primary Care Provider [phone] César Caba MD Primary Care Prov ider Reason for Visit * Reason Onset Date Comments Med Refill 10/20/2024 Encounter Details Date Type Department Care Team (Late st Contact Info) Description 10/20/2024 Refill [facility]EDS [address] [place], [place] [phone] Anisa Swann MD [address] [place], [place] [phone] Social History Tobacco Use Types Packs/Day Years [...] Description 01/12/2025 10:30 AM EDT Procedure Visit [facility] [address] [place] [address] Shelia Weldon CNM [address] [place] [address] 05/08/2025 10:00 AM EST Office Visit [facility] ADULT DENTAL [address] [place] [address] Barbara Clarke documented as of this encounter Visit Diagnoses Not on filedocumented in this encounter Care Teams Stereotyper Apprentice Relationship Specialty Start Date End Date Anisa Swann MD [address] [place] [address] PCP - General Family Medicine 04/07/15 12/16/24 César Caba MD [address] [place] [address] PCP - General Internal Medicine 12/17/24 documented as of this encounter
--- OUTSIDE RECORDS SUMMARY | 2024-12-31 11:00 | XMS_ITS | Patient Health Record ---
Author Organization [facility] Address [address] [place] [address] Care Team Providers Care Electromechanisms Design Drafter Name Role Phone Anisa Swann Primary Care Provider Michelle Ovalle Unavailable [phone] Reason For Referral No Information Medications Medication SIG (Take, Route, Frequency, Duration) Notes Start Date End Date Status Tylenol PRN Active Social History Tobacco Use: Social History Observation Description Date Details (start date - stop date) Never Smoker NA - NA Tobacco Use/Smoking Question Answer Notes Are you a: nonsmoker Additional Findings: Tobacco Non-User Current no n-smoker Alcohol Screen Question Answer Notes Did you have a drink containing alcohol in the p ast year? No Points 0 Interpretation Negative Tobacco use other than smoking: Question Answer Notes Are you an other tobacco user? No Plan Of Treatment No Information Medical (General) History Medical History History ICD Code Headaches/Migraines
[2024-12-31 13:20] LABS: MANUAL DIFF FLAG NO
[2024-12-31 14:03] LABS: Hematocrit 39.1 % (37.0-47.0); Hemoglobin 12.7 g/dl (12.0-16.0); Imm Gran Abs Auto 0.01 X10*3/uL (0.00-0.03); Imm Gran Pct Auto 0.1 % (0.0-0.4); Lymphocytes Absolute Auto 2.7 X10*3/uL (1.2-4.9); Mean Corpuscular HGB Conc 32.5 g/dl (31.0-35.0); Mean Corpuscular Hemoglobin 28.9 pg (27.0-33.0); Mean Corpuscular Volume 89.1 fL (80.0-98.0); NRBC Abs Auto 0.000 X10*3/uL (0.0-0.012); NRBC Pct Auto 0.0 /100WBC (0.0-0.2); Platelet Count 296 X10*3/uL (160-400); Red Blood Count 4.39 X10*6/uL (4.20-5.50); White Blood Count 8.0 X10*3/uL (4.8-10.8)
[2024-12-31 14:22] LABS: Alanine Aminotransferase 15 U/L (0-31); Albumin Level 4.1 g/dL (3.5-5.0); Alkaline Phosphatase 52 U/L (39-117); Anion Gap 10 (12-20); Aspartate Amino Transferase 21 U/L (5-31); Blood Urea Nitrogen 7 mg/dL (9-16); Calcium 9.2 mg/dL (8.4-10.2); Carbon Dioxide 27 mmol/L (22-29); Chloride 105 mmol/L (96-108); Cholesterol 212 mg/dL (<200); Estimated Glomerular Filt Rate > 60; HDL Cholesterol 34 mg/dL (>40); Iron 98 mcg/dL (30-160); Percent Iron Saturation 32 % (15-50); Potassium 4.3 mmol/L (3.3-5.1); Sodium 138 mmol/L (135-145); Total Iron Binding Capacity 302 mcg/dL (228-428); Total Protein 7.3 g/dL (6.5-8.0); Triglycerides 211 mg/dL (<150); Unsaturated Iron Binding 204 ug/dL
[2024-12-31 14:52] LABS: Microalbum/Creatinine Ratio Ur 4.8 ug/mg cr (<30)
[2024-12-31 15:10] LABS: Folate 10.2 ng/mL (> or = 4.0); Vitamin B12 413 pg/mL (200-900)
== END 2024-12-31 10:13 | disposition home or self-care (01) ==
LOC: HO.HMGCLDS 10:12
PROVIDERS: PCP Internal Medicine; Visit Provider Internal Medicine
DX: E11.65 Type 2 diabetes mellitus with hyperglycemia (principal); R20.2 Paresthesia of skin
CPT/HCPCS: 36415; 80053; 80061; 82043; 82570; 82607; 82746; 83540; 84443; 85025

== ENCOUNTER 2025-01-12 16:18 | Outpatient (REF) | payer MEDICAID, OTHER, SELFPAY ==
--- OUTSIDE RECORDS SUMMARY | 2025-01-12 10:30 | XMS_ITS | Encounter Summary ---
Author Organization [employer] Address [address] [facility] 7t [place] [address] Care Team Providers Care Touch Up Painter Name Role Phone César Caba MD Primary Care Prov ider Reason for Visit * Reason Comments Gynecologic Exam Encounter Details Date Type Department Care Team (Latest Contact Info) Description 01/12/2025 10:30 AM EDT Procedure Visit [facility] MEDICINE [address] [place], [place] [phone] Shelia Weldon CNM [address] [place] [address] Cervical cancer screening (Primary Dx); Surveillance of previously prescribed contraceptive pill Social History Tobacco Use Types Packs/Day Years Used Date Smoking Tobacco: Never Passive Smoke Exposure: Never Smokeless Tobacco: Never Tobacco Cessation:Counseling Given: Not Answered Alcohol Use Standard Drinks/Week Comments Never 0 (1 standard drink = 0.6 oz pur e alcohol) Depression Answer Date Recorded Patient Health Questionnaire-9 Score 0 01/12/2025 Patient Health Questionnaire-9 Score 0 01/12/2025 Last PHQ-9: Questionnaire Data Not on file 0 01/12/2025 Housing Stability Answer Date Recorded What is [...] off services in your home? No 11/12/2024 Depression Answer Date Recorded Patient Health Questionnaire-2 Score 0 01/12/2025 Internet Access Answer Date Recorded Internet Access Q1 No 11/12/2024 Internet Access Q2 I do not want or need it 01/2025 Comments No Intention Date Recorded No desire to become (finding) 0 01/12/2025 Sex and Gender Information Value Date Recorded Sex Assigned at Female 03/06/2022 10:27 AM EDT Legal Sex Female 10:27 AM EDT Gender Identity Female 03/06/2022 10:27 AM EDT Sexual Orientation Choose not to disclose 2021 10:27 AM EDT documented as of this encounter Last Filed Vital Signs Vital Sign Reading Time Taken Comments Blood Pressure 110/70 01/12/2025 10:41 AM EDT Pulse 72 01/12/2025 10:41 AM EDT Temperature 37.2 C (99 F) 01/12/2025 10:41 AM EDT Respiratory Rate 16 01/12/2025 10:41 AM EDT Oxygen Saturation 99% 01/12/2025 10:41 AM EDT Inhaled Oxygen Concentration - - Weight 85.3 kg (188 lb) 01/12/2025 10:41 AM EDT Height 165.1 cm (5' 5 ) 01/12/2025 10:41 AM EDT Body Mass Index 31.28 01/12/2025 10:41 AM EDT documented in this encounter Functional Status * Over the past 2 weeks, how often have you been bothered by any of the following problems? Question Answer Date of Assessment Author Patient Health Questionnaire -2 Score 0 01/12/2025 10:43 AM EDT Litzy Montenegro MA * Little interest or pleasure in doing things Answer Date of Assessment Author Not at all 01/12/2025 10:43 AM EDT Litzy Montenegro MA * Feeling down, depressed, or hopeless Answer Date of Assessment Author Not at all 01/12/2025 10:43 AM Litzy Zambrano [place] * Trouble falling or staying asleep, or sleeping too much Answer Date of Assessment Author Not at all 01/12/2025 10:43 AM Litzy Zambrano [place] * Feeling tired or having little energy Answer Date of Assessment Author Not at all 01/12/2025 10:43 AM CLARENCET Litzy Montenegro MA * Poor appetite or overeating Answer Date of Assessment Author Not at all 01/12/2025 10:43 AM EDT Litzy Montenegro MA * Feeling bad about yourself - or that you are a failure or have let yourself or your family down Answer Date of Assessment Author Not at all 01/12/2025 10:43 AM Litzy Zabmrano [place] * Trouble concentrating on things, such as reading the newspaper or watching television Answer Date of Assessment Author Not at all 01/12/2025 10:43 AM Litzy Zambrano MA * Moving or speaking so slowly that other people could have noticed? Or the opposite - being so fidgety or restless that you have been moving around a lot more than usual. Answer Date of Assessment Author Not at all 01/12/2025 10:43 AM Litzy Zambrano MA * Thoughts that you would be better off or hurting yourself in some way Answer Date of Assessment Author Not at all 01/12/2025 10:43 AM Litzy Zambrano MA * Patient Health Questionnaire-9 Score Answer Date of Assessment Author 0 01/12/2025 10:43 AM Litzy Zambrano MA documented as of this encounter Progress Notes * Shelia Weldon CNM - 01/12/2025 10:30 AM EDT Subjective Patient ID: Paula Rivera is a 39 y.o. female who presents for pap Due for cotesting. NIL/HPV neg pap 12/2023. NIL/HPV positive pap 12/2022, negative 16/18/45. NIL/HPV neg 10/2019. No worrisome findings on pelvic ultrasound 10/2023. Previously on weekly fluconazole for vulvovaginal candidiasis suppression. No vaginal symptoms at this time. IUD removed 01/2024. Taking NET progestin only pill, happy with method but occasional missed/late pill. Penitentiary AMAB partner, no safety concerns. Monthly menses, but very light. Not taking phentermine or topiramate. Previously on Mounjaro, not current using as insurance deniedPA. Notes recent weight gain, frustrated by this. Would like breast and pelvic exam today. Review of Systems Genitourinary: Negative for dyspareunia, dysuria, frequency, genital sores, hematuria, menstrual problem, pelvic pain, urgency, vaginal bleeding, vaginal discharge and vaginal pain. No abnormal bleeding, no breast pain, no breast mass, no nipple discharge Objective BP 110/70 (BP Location: Left arm, Patient Position: Sitting, BP Cuff Size: Adult) Pulse 72 Temp99 ??F (37.2 ??C) (Oral) Resp 16 Ht 5' 5 (1.651 m) Wt 188 lb (85.3 kg) LMP 12/24/2024 (Approximate) SpO2 99% BMI 31.28 kg/m?? Physical Exam Uniformer present: declines repair tech. Constitutional: Appearance: Normal appearance. Chest: Breasts: Right: Normal. No swelling, bleeding, inverted nipple, mass, nipple discharge, skin change or tenderness. Left: Normal. No swelling, bleeding, inverted nipple, mass, nipple discharge, skin change or tenderness. Genitourinary: General: Normal vulva. Labia: Right: No rash, tenderness, lesion or injury. Left: No rash, tenderness, lesion or injury. Vagina: Normal. No signs of injury and foreign body. No vaginal discharge, erythema, tenderness, bleeding or lesions. Cervix: Friability present. No cervical motion tenderness, discharge, lesion, erythema, cervical bleeding or eversion. Uterus: Normal. Not enlarged and not tender. Adnexa: Right adnexa normal and left adnexa normal. Right: No mass, tenderness or fullness. Left: No mass, tenderness or fullness. Lymphadenopathy: Upper Body: Right upper body: No supraclavicular or axillary adenopathy. Left upper body: No supraclavicular or axillary adenopathy. Neurological: Mental Status: She is alert. Psychiatric: Mood and Affect: Mood normal. Behavior: Behavior normal. Assessment/Plan Diagnoses and all orders for this visit: Cervical cancer screening - Pap Smear Cotest 3 years if normal/HPV negative. Will contact with results. Surveillance of previously prescribed contraceptive pill Other orders - Drospirenone (Slynd) 4 MG tablet; Take 1 tablet by mouth Once per day. Discussed switching to Slynd, longer half life, more forgiving of occasional missed/late pill. She would like to do this. Start new pill now. Use condoms or hold off on sex x 3 days after restart. Report missed menses. Will rule out if so. Reassured that if not , fine to not havemenses while on oral contraceptive pill. Reviewed interactions with Mounjaro and topiramate with oral contraceptive pill. Please let me knowif either started again. Try to increase physical activity. Start with walking 30 min daily if possible. Followup with PCP as needed. documented in this encounter Plan of Treatment Upcoming Encounters Date Type Department Care Team (Late st Contact Info) Description 05/08/2025 10:00 AM EST Office Visit [facility] ADULT D[facility] [address] [place] [address] Barbara Clarke Scheduled Orders Name Type Priority Associated Diagnoses Orde r Schedule Pap Smear Pathology and Cytology Routine Cervical cancer screening Ordered: 01/12/2025 documented as of this encounter Visit Diagnoses Diagnosis Cervical cancer screening- Primary Screening for malignant neoplasm of the cervix Surveillance of previously prescribed contraceptive pill documented in this encounter Additional Health Concerns Assessment Noted Time PHQ-9 Depression Total Score: 0 01/13/20 10:43 AM EDT documented as of this encounter Care Teams Touch Up Painter Relationship Specialty Start Date End Date César Caba MD [address] [place] [address] PCP - General Internal Medicine 12/17/24 documented as of this encounter
--- OUTSIDE RECORDS SUMMARY | 2025-01-12 18:47 | XMS_ITS | Patient Health Record ---
Author Organization [facility] Address [address] [facility] [address] Care Team Providers Care Incoming Freight Clerk Name Role Phone Anisa Swann Primary Care Provider Michelle Ovalle Unavailable [phone] Reason For Referral No Information Medications Medication [...]
--- OUTSIDE RECORDS SUMMARY | 2025-01-12 18:47 | XMS_ITS | Encounter Summary ---
Author Organization [employer] Address [address] [facility] 7t [place] [address] Care Team Providers Care Pai Gow Dealer Name Role Phone Anisa Swann MD Primary Care Provider [phone] César Caba MD Primary Care Prov ider Encounter Details Date Type Department Care Team (Late st Contact Info) Description 11/19/2023 Orders Only [facility] MED & PEDS [address] [place], [place] [phone] César Caba MD [address] [place] [address] Social History Tobacco Use Types Packs/Day Years [...] Description 05/08/2025 10:00 AM EST Office Visit [facility] ADULT DENTAL [address] [place] [address] Barbara Clarke documented as of this encounter Visit Diagnoses Not on filedocumented in this encounter Care Teams Pai Gow Dealer Relationship Specialty Start Date End Date Anisa Swann MD [address] [place] [address] PCP - General Family Medicine 04/07/15 12/16/24 César Caba MD [address] [place] [address] PCP - General Internal Medicine 12/17/24 documented as of this encounter
--- OUTSIDE RECORDS SUMMARY | 2025-01-12 18:47 | XMS_ITS | Encounter Summary ---
Author Organization [employer] Address [address] [facility] [address] 7t [place] [address] Care Team Providers Care Campaign Management Specialist Name Role Phone César Caba MD Primary Care Prov ider Encounter Details Date Type Department Care Team (Late st Contact Info) Description 01/09/2025 Telephone [facility] [address] [place], [place] [phone] Sahra Herrera [place] Social History Tobacco Use Types Packs/Day Years [...] encounter Miscellaneous Notes * Telephone Encounter - Sahra Herrera [place] - 01/09/2025 11:16 AM EDT Chart Prep Labs: done Images: not applicable Referrals: emg /authorized Vaccines due: Covid, Flu, PCV20, and Hep B Screenings: eye exam Overdue care gaps: PHQ-9 documented in this encounter Plan of Treatment Upcoming Encounters Date Type Department Care Team ([facility] st Contact Info) Description 05/08/2025 10:00 AM EST Office Visit [facility] ADULT DENTAL [address] [place] [address] Barbara Clarke documented as of this encounter Visit Diagnoses Not on filedocumented in this encounter Care Teams Campaign Management Specialist Relationship Specialty Start Date End Date César Caba MD [address] [place] [address] PCP - General Internal Medicine 12/17/24 documented as of this encounter
--- OUTSIDE RECORDS SUMMARY | 2025-01-12 18:47 | XMS_ITS | Encounter Summary ---
Author Organization [employer] Address [address] [facility] 7t [place] [address] Care Team Providers Care Retail Business Development Manager Name Role Phone César Caba MD Primary Care Prov ider Encounter Details Date Type Department Care Team (Latest Contact Info) Description 01/12/2025 Travel Social History Tobacco Use Types Packs/Day [...] AM EDT documented as of this encounter Functional Status * Over the [...] 10:43 AM EDT Litzy Montenegro [place] * Trouble falling or staying asleep, or sleeping too much Answer Date of Assessment Author Not at all 01/12/2025 10:43 AM CLARENCET Litzy Montenegro MA * Feeling tired or having little [...] 10:43 AM Litzy Zambrano MA * Trouble concentrating on things, such [...] 10:43 AM EDT Litzy Montenegro MA * Thoughts that you would be better off or hurting yourself in some way Answer Date of Assessment Author Not at all 01/12/2025 10:43 AM EDT Litzy Montenegro MA * Patient Health Questionnaire-9 Score Answer Date of Assessment Author 0 01/12/2025 10:43 AM EDT Litzy Montenegro MA documented as of this encounter Plan of Treatment Upcoming Encounters Date Type Department Care Team (Late st Contact Info) Description 05/08/2025 10:00 AM EST Office Visit [facility] ADULT DENTAL [address] [place] [address] Barbara Clarke documented as of this encounter Visit Diagnoses Not on filedocumented in this encounter Additional Health Concerns Assessment Noted Time PHQ-9 Depression Total Score: 0 01/13/20 10:43 AM EDT documented as of this encounter Care Teams Retail Business Development Manager Relationship Specialty Start Date End Date César Caba MD [address] [place] [address] PCP - General Internal Medicine 12/17/24 documented as of this encounter
--- OUTSIDE RECORDS SUMMARY | 2025-01-12 18:47 | XMS_ITS | Clinical Summary ---
Author Organization [facility] Address [address] [place] [address] Care Team Providers Care Gun Perforator Loader Name Role Phone Anisa Swann Primary Care Provider [phone] Allergies No known active allergies Medications fexofenadine [...] Years) (1 of 2 - PCV) 2004 Alcohol/Substance Use Screening 05/07/2024 Depression Screening and Follow-Up 05/07/2024 Social Drivers of Health Patito ual Screening 05/07/2024 Basic Metabolic Panel 09/10/2024 09/11/2023 COVID-19 Vaccine (3 - 2024-2 6 season) 2025 01/18/2021, 12/28/2020 Influenza Vaccine (#1) 2025 , 02/06/2023, 02/06/2022, Additional history exists Cervical Cancer Screening 12/26/2025 Pap Smear 12/26/2025 12/26/2022 DTaP,Tdap,and Td Vaccines (3 - Td or Tdap) 05/19/2026 05/19/2016, 11/21/2013 RSV Vaccine (60+ years old a nd patients) (1 - 1-dose 75+ series) 2060 HIV Screening Completed 05/14/2023 Hepatitis C Screening Completed 05/14/2023 Insurance [facility] [id number] HS/FREE CARE Care Teams Gun Perforator Loader Relationship Specialty Start Date End Date Anisa Swann [address] [place] [address] PCP - General Family Medicine 09/21/17
--- OUTSIDE RECORDS SUMMARY | 2025-01-12 18:47 | XMS_ITS | Encounter Summary ---
Author Organization [employer] Address [address] [facility] 7t [place] [address] Care Team Providers Care White Sugar Syrup Operator Name Role Phone Anisa Swann MD Primary Care Provider César Caba MD Primary Care Prov ider Reason for Visit * Reason Comments Med Refill Encounter Details Date Type Department Care Team (Late st Contact Info) Description 12/10/2024 Refill [facility] [address] [place] [address] Shelia Weldon CNM [address] [place] [address] Social History Tobacco Use Types Packs/Day Years [...] Description 05/08/2025 10:00 AM EST Office Visit [facility] ADULT D[facility]AL [address] [place] [address] Barbara Clarke documented as of this encounter Visit Diagnoses Not on filedocumented in this encounter Care Teams White Sugar Syrup Operator Relationship Specialty Start Date End Date Anisa Swann MD [address] [place] [address] PCP - General Family Medicine 04/07/15 12/16/24 César Caba MD [address] [place] [address] PCP - General Internal Medicine 12/17/24 documented as of this encounter
--- OUTSIDE RECORDS SUMMARY | 2025-01-12 18:47 | XMS_ITS | Encounter Summary ---
Author Organization [employer] Address 75 [facility] 7t [place] [address] Care Team Providers Care Osd Clerk Name Role Phone Anisa Swann MD Primary Care Provider [phone] César Caba MD Primary Care Prov ider Reason for Visit * Reason Onset Date Comments Med Refill 04/14/2024 Encounter Details Date Type Department Care Team (Late st Contact Info) Description 04/14/2024 Refill [facility] MED[facility]INE [address] [place] [address] Shelia Weldon, CN [address] [place], [place] [phone] Social History Tobacco Use Types Packs/Day Years [...] Description 05/08/2025 10:00 AM EST Office Visit [facility] ADULT DENTAL [address] [place] [address] Brabara Clarke documented as of this encounter Visit Diagnoses Not on filedocumented in this encounter Care Teams Osd Clerk Relationship Specialty Start Date End Date Anisa Swann MD [address] [place] [address] PCP - General Family Medicine 04/07/15 12/16/24 César Caba MD [address] [place] [address] PCP - General Internal Medicine 12/17/24 documented as of this encounter
--- OUTSIDE RECORDS SUMMARY | 2025-01-12 18:47 | XMS_ITS | Encounter Summary ---
Author Organization [employer] Address [address] [facility] 7t [place] [address] Care Team Providers Care Voice Writing Reporter Name Role Phone Anisa Swann MD Primary Care Provider [phone] César Caba MD Primary Care Prov ider Encounter Details Date Type Department Care Team (Late st Contact Info) Description 12/10/2024 Orders Only [facility] CH[facility] MED & PEDS [address] [place], [place] [phone] César Caba MD [address] [place] [address] Social History Tobacco Use Types Packs/Day Years [...] Description 05/08/2025 10:00 AM EST Office Visit [facility] CH[facility] ADULT DENTAL [address] [place] [address] Barbara Clarke documented as of this encounter Visit Diagnoses Not on filedocumented in this encounter Care Teams Voice Writing Reporter Relationship Specialty Start Date End Date Anisa Swann MD [address] [place] [address] PCP - General Family Medicine 04/07/15 12/16/24 César Caba MD [address] [place] [address] PCP - General Internal Medicine 12/17/24 documented as of this encounter
--- OUTSIDE RECORDS SUMMARY | 2025-01-12 18:47 | XMS_ITS | Encounter Summary ---
Author Organization [employer] Address [address] [facility] 7t [place] [address] Care Team Providers Care Ccu Nurse Name Role Phone Anisa Swann MD Primary Care Provider [phone] César Caba MD Primary Care Prov ider Reason for Visit * Reason Onset Date Comments Med Refill 12/26/2023 Encounter Details Date Type Department Care Team (Late st Contact Info) Description 12/26/[address] [facility] CH[facility] MED & PEDS [address] [place], [place] [phone] César Caba MD [address] [place], [place] [phone] Social History Tobacco Use Types Packs/Day Years [...] Description 05/08/2025 10:00 AM EST Office Visit [facility] CHC ADULT DENTAL [address] [place] [address] Barbara Clarke documented as of this encounter Visit Diagnoses Not on filedocumented in this encounter Care Teams Ccu Nurse Relationship Specialty Start Date End Date Anisa Swann MD [address] [place] [address] PCP - General Family Medicine 04/07/15 12/16/24 César Caba MD [address] [place] [address] PCP - General Internal Medicine 12/17/24 documented as of this encounter
--- OUTSIDE RECORDS SUMMARY | 2025-01-12 18:47 | XMS_ITS | Encounter Summary ---
Author Organization [employer] Address [address] [facility] 7t [place] [address] Care Team Providers Care Systems Accountant Name Role Phone Anisa Swann MD Primary Care Provider [phone] César Caba MD Primary Care Prov ider Encounter Details Date Type Department Care Team (Late st Contact Info) Description 02/28/2024 Orders Only [facility] MED & PEDS [address] [place], [place] [phone] César Caba MD [address] [place] [address] Social History Tobacco Use Types Packs/Day Years [...] Description 05/08/2025 10:00 AM EST Office Visit [facility] ADULT DENTAL [address] [place] [address] Barbara Clarke documented as of this encounter Visit Diagnoses Not on filedocumented in this encounter Care Teams Systems Accountant Relationship Specialty Start Date End Date Anisa Swann MD [address] [place] [address] PCP - General Family Medicine 04/07/15 12/16/24 César Caba MD [address] [place] [address] PCP - General Internal Medicine 12/17/24 documented as of this encounter
--- OUTSIDE RECORDS SUMMARY | 2025-01-12 18:47 | XMS_ITS | Clinical Summary ---
Author Organization [employer] Address [address] [facility] 7t [place] [address] Care Team Providers Care Clerk To Justice Name Role Phone César Caba MD Primary Care Prov ider Allergies No known active allergies Medications albuterol 108 (90 Base) MCG/ACT inhaler Inhale 2 puffs every 4 (four) hours if needed for wheezing. 18 g 4 03/05/20 25 Active fexofenadine (Taylor) 180 MG tablet Take 180 mg by mouth if needed. Active ibuprofen 600 MG tablet TAKE ONE TABLET BY MOUTH THREE TIMES DAILY 90 tablet 5 Active metFORMIN (Glucophage) 500 MG tablet Take 1 tablet (500 mg) by mouth with breakfast. 30 tablet 11 5 11/13/19 26 Active terbinafine (LamISIL) 250 MG tablet Take 1 tablet (250 mg) by mouth Once per day. 90 tablet 5 03/25/20 25 Active phentermine 15 MG capsule Take 1 capsule (15 mg) by mouth before breakfast. 30 capsule 5 01/26/20 25 Active topiramate (Topamax) 50 MG tablet Take 1 tablet (50 mg) by mouth Once per day. 30 tablet 5 12/27/19 26 Active Drospirenone (Slynd) 4 MG tablet Take 1 tablet by mouth Once per day. 28 tablet 11 5 Active phentermine 15 MG capsule Take 1 capsule (15 mg) by mouth before breakfast. 30 capsule 5 12/26/19 25 Discontinued topiramate (Topamax) 50 MG tablet Take 1 tablet (50 mg) by mouth Once per day. 30 tablet 11 5 12/26/19 25 Discontinued norethindrone (Micronor) 0.35 MG tablet Take 1 tablet (0.35 mg) by mouth Once per day. 28 tablet 11 5 01/13/20 25 Discontinued Active Problems Problem Noted Date Diagnosed [...] Encounters Date Type Department Care Team Description 01/12/2025 10:30 AM EDT Procedure Visit [facility] [address] [place] [address] Shelia Weldon CNM Cervical cancer screening (Primary Dx); Surveillance of previously prescribed contraceptive pill 01/12/2025 Travel 01/09/2025 Telephone [facility] [address] [place] [address] Sahra Herrera MA 12/30/2024 1:15 PM EDT Telemedicine [facility] MED & PEDS [address] [place] [address] César Caba MD Tingling (Primary Dx) 12/30/2024 Travel 12/29/[address] [facility] MED & PEDS [address] [place] [address] César Caba MD triage 12/25/2024 Travel 12/24/[address] [facility] [address] [place] [address] César Caba MD chart prep 12/17/2024 Telephone [facility] [address] [place] [phone] Yanira Payton, PharmD 12/10/2024 Refill [facility] [address] [place] [phone] Shelia Weldon, RUI 12/10/2024 Orders Only [facility] [address] [place] [address] César Caba MD 12/04/2024 Telephone [facility] [address] [place] [address] Anisa Swann MD [address] [facility] [address] [place] [address] Anisa Swann MD Prior Authorization 11/24/2024 9:15 AM EDT Office Visit [facility] [address] [place] [phone] Taylor Hernandez MD Anxiety (Primary Dx) 11/24/2024 Travel 11/20/2024 9:15 AM EDT Office Visit [facility] [address] [place] [phone] Taylor Hernandez MD Anxiety (Primary Dx) 11/20/2024 Orders Only [facility] [address] [place] [address] Anisa Swann MD 11/20/2024 Travel 11/18/2024 10:00 AM EDT Office Visit [facility] ADULT DENTAL [address] [place] [address] Chente Elias, SCOUT Dental caries (Primary Dx) 11/12/2024 11:15 AM EDT Office Visit [facility] MED [facility] P[facility] 505 [place] [address] Anisa Swann MD Type 2 diabetes mellitus with hyperglycemia, without long-term current use of insulin ([facility]) (Primary Dx); Obesity (BMI 30-39.9) 11/12/2024 Travel 10/28/2024 10:00 AM EDT Office Visit [facility] ADULT [facility] [address] [place] [address] Barbara Clarke Dental calculus (Primary Dx) 10/28/2024 Travel 10/20/[address] [facility] 505 [place] [address] Anisa Swann MD 10/16/2024 10:00 AM EDT Office Visit 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 [address] [place] [address] Anisa Swann MD from Last 3 Months [...] Medical History Relation Name Comments Diabetes Father N Relation Name Status Comments Father N Social History Tobacco Use Types Packs/Day Years [...] Mass Index 31.28 01/12/2025 10:41 AM EDT Plan of Treatment Upcoming Encounters Date Type Department Care Team (Late st Contact Info) Description 05/08/2025 10:00 AM EST Office Visit [facility] ADULT D[facility] [address] [place] [address] Barbara Clarke Health Maintenance Due Date Last Done Comments HIV Screening 1985 Eye Exam 11/26/1995 Hepatitis B Vaccines (1 of 3 - 19+ 3-dose series) 2004 Pneumococcal Vaccine: Pediatrics (0 to 5 Years) and At-Risk Patients (6 to 49) Years (1 of 2 - PCV) 2004 Cervical Cancer Screening 12/30/2024 HPV/Cotest 12/30/2024 12/31/2023, 12/06, 10/21/2019 Pap Smear 12/30/2024 12/31/2023, 12/06, 10/21/2019 COVID-19 Vaccine ( season) 2025 01/18/2021, 12/28/2020 Influenza Vaccine (#1) 2025 , 02/06/2023, 02/06/2022, Additional history exists Dental X-Ray: Bitewings 04/19/2025 04/18/20 24, 07/15/2019, 03/25/2019, Additional history exists Dental Prophylaxis 04/30/2025 10/28/2024, 1 06/19/2023, 05/01/2018, Additional history exists Diabetes: Foot Exam 05/15/2025 05/15/2024 Diabetes: Hemoglobin A1C 05/15/2025 025, 08/13/2024, 05/15/2024, Additional history exists Dental Oral Exam 05/22/2025 11/18/2024, , 03/25/2019, Additional history exists Alcohol/Substance Use Screening 11/12/2025 11/12/2024 SDOH Screening 11/12/2025 11/12/2024 Diabetes: Urine Protein Screening 12/31/2025 12/31/2024 Lipid Panel 12/31/2025 12/31/2024, 04/0 01/2025, 05/15/2024, Additional history exists Depression Screening 01/12/2026 01/12/2025, 01/13/20 Disability Screening 01/12/2026 01/12/2025 Family Planning (PISQ) 01/12/2026 01/12/2025 Tobacco Screening 01/12/2026 01/12/2025 DTaP/Tdap/Td Vaccines (4 - Td or Tdap) [...] Procedure Name Priority Date/Time Associated Diagnosis Comments ALBUMIN, RANDOM URINE W/CREATININE Routine 12/31/2024 10:25 AM EDT Type 2 diabetes mellitus with hyperglycemia, without long-term current use of insulin ([facility]) IRON AND TOTAL IRON BINDING CAPACITY Routine 12/31/2024 10:16 AM EDT Tingling VITAMIN B12/FOLATE, SERUM PANEL Routine 12/31/2024 10:16 AM EDT Tingling TSH W/REFLEX TO FT4 Routine 12/31/2024 1 0:16 AM EDT Type 2 diabetes mellitus with hyperglycemia, without long-term current use of insulin (CMS/HCC) LIPID PANEL, STANDARD Routine 12/31/2024 10:16 AM EDT Type 2 diabetes mellitus with hyperglycemia, without long-term current use of insulin (CMS/HCC) COMPREHENSIVE METABOLIC PANEL Routine 12/31/2024 10:16 AM EDT Type 2 diabetes mellitus with hyperglycemia, without long-term current use of insulin (CMS/HCC) CBC WITH AUTO DIFFERENTIAL Routine 12/31/2024 10:16 AM EDT Type 2 diabetes mellitus with hyperglycemia, without long-term current use of insulin (CMS/HCC) CASE PRESENTATION, DETAILED AND EXTENSIVE TREATMENT PLANNING [...] use of insulin (CMS/HCC) POCT GLUCOSE Routine 11/12/2024 11:20 AM EDT Type 2 diabetes mellitus with hyperglycemia, without long-term current use of insulin (CMS/HCC) ORAL HYGIENE INSTRUCTIONS Routine 10/28/2024 10:00 AM EDT CASE PRESENTATION, DETAILED AND EXTENSIVE TREATMENT PLANNING Routine 10/28/2024 10:00 AM EDT PROPHYLAXIS - ADULT Routine 10/28/2024 1 0:00 AM EDT 3 REDO COMPOSITE - NO CHARGE Routine 10/16/2024 10:00 AM EDT Defective dental caodaism with open interproximal contact AMB REFERRAL TO PODIATRY Urgent 05/15/2024 Type 2 diabetes mellitus with hyperglycemia, without long-term current use of insulin ([facility]) PANORAMIC RADIOGRAPHIC IMAGE Routine 04/21/2024 11:00 AM [...] Recently Relevant to Health Maintenance Results * Albumin, Random Urine W/Creatinine (12/31/2024 10:25 AM EDT) Creatinine, Urine 144.77 mg/dL [facility] Microalbumin Urine 7.0 mg/L [facility] Microalbum Creatinine Ratio Ur 4.8 <30 ug/mg cr [facility] Comment:Albumin/Creatinine R atio Reference Ranges: Normal: < 30 ug/mg creatinine Microalbuminuria: 30 - 300 ug/mg creatinineClinical Albuminuria: > 300 ug/mg creatinine Urine (Urine, Random) 12/31/2024 10:25 AM EDT 12/31/2024 1:03 PM EDT us César Silver MD LAB URINE ORDERABL ES Final Result [facility] [address] [place] [phone] * Vitamin B12 (Cobalamin) and Folate Panel, Serum (12/31/2024 10:16 AM EDT) Vitamin B12 413 200 - 900 pg/mL [facility] Comment:NORMAL 200-900 PG/ML INDETERMINATE 160-199 PG/ML DEFICIENT < 160 PG/ML Folate 10.2 > or = 4.0 ng/mL [facility] Comment:Reference Values:> o r = 4.0 ng/mL< 4.0 ng/mL suggests folate deficiency Methotrexate, aminopterin and folinic acid(leucovorin) are chemotherapeutic agents whose molecularstructures are similar to folate; therefore, the Architectfolate assay cannot be used for patients using these drugs. Blood Venous blood specimen / Unknown 12/31/2024 10:16 AM EDT 12/31/2024 1:21 PM EDT César Silver MD LAB BLOOD ORDERABL ES Final Result Performing Organization Address [facility]/ZIP Co de Phone Number [facility] [address] [place] [phone] * TSH W/Reflex to FT4 (12/31/2024 10:16 AM EDT) TSH reflex Free T4 1.77 0.32 - 4.0 uIU/mL [facility] Blood Venous blood specimen / Unknown 12/31/2024 10:16 AM EDT 12/31/2024 1:17 PM EDT César Silver MD LAB BLOOD ORDERABL ES Final Result Performing Organization Address [facility] Co de Phone Number [facility] [address] [place] [phone] * CBC auto differential (12/31/2024 10:16 AM EDT) White Blood Count 8.0 4.8 - 10.8 X10*3/uL [facility] Red Blood Count 4.39 4.20 - 5.50 X10*6/uL [facility] Hemoglobin 12.7 12.0 - 16.0 g/dl [facility] Hematocrit 39.1 37.0 - 47.0 % [facility] Mean Corpuscular Volume 89.1 80.0 - 98.0 fL [facility] Mean Corpuscular Hemoglobin 28.9 27.0 - 33.0 pg [facility] Mean Corpuscular HGB Conc 32.5 31.0 - 35.0 g/dl [facility] Red Cell Distribution Width 12.9 11.0 - 16.0 % [facility] Platelet Count 296 160 - 400 X10*3/uL [facility] Mean Platelet Volume 10.8 9.4 - 12.3 fL [facility] Neutrophils Percent Auto 58.5 45 - 73 % [facility] Imm Gran Pct Auto 0.1 0.0 - 0.4 % [facility] Lymphocytes Percent Auto 33.5 20 - 40 % [facility] Monocytes Percent Auto 5.4 2 - 11 % [facility] Eosinophils Percent Auto 2.0 0 - 4 % [facility] Basophils Percent Auto 0.5 0 - 2 % [facility] NRBC Pct Auto 0.0 0.0 - 0.2 /100WBC [facility] Neutrophils Absolute Auto 4.7 2.0 - 8.3 x10*3/uL [facility] Imm Gran Abs Auto 0.01 0.00 - 0.03 X10*3/uL [facility] Lymphocytes Absolute Auto 2.7 1.2 - 4.9 X10*3/uL [facility] Monocytes Absolute Auto 0.4 0.1 - 1.2 X10*3/uL [facility] Eosinophils Absolute Auto 0.2 0.0 - 0.4 X10*3/uL [facility] Basophils Absolute Auto 0.0 0.0 - 0.2 X10*3/uL [facility] NRBC Abs Auto 0.000 0.0 - 0.012 X10*3/uL [facility] Blood Venous blood specimen / Unknown 12/31/2024 10:16 AM EDT 12/31/2024 1:17 PM EDT us César Silver MD LAB BLOOD ORDERABL ES Final Result [facility] [address] [place] [phone] [phone] * Iron And Total Iron Binding Capacity (12/31/2024 10:16 AM EDT) Iron 98 30 - 160 mcg/dL [facility] Total Iron Binding Capacity 302 228 - 428 mcg/dL [facility] Percent Iron Saturation 32 15 - 50 % [facility] Unsaturated Iron Binding 204 ug/dL [facility] Blood Venous blood specimen / Unknown 12/31/2024 10:16 AM EDT 12/31/2024 1:17 PM EDT César Silver MD LAB BLOOD ORDERABL ES Final Result [facility] [address] [place] [phone] [phone] * (ABNORMAL) Lipid Panel, Standard (12/31/2024 10:16 AM EDT) Triglycerides 211(H) <150 mg/dL [facility] Comment:Desirable Triglyceri de: less than 150 mg/dLBorderline High Triglyceride 150-199 mg/dLHigh Triglyceride: 200-499 mg/dLVery High Triglyceride: greater than or equal to 5OO mg/dL Cholesterol 212(H) <200 mg/dL [facility] Comment:Desirable Cholestero l: less than 200 mg/dLBorderline High Cholesterol: 200-239 mg/dLHigh Cholesterol: greater than 239 mg/dL LDL Cholesterol Calculated 136(H) <100 mg/dL [facility] Comment:Desirable LDL: less than 100 mg/dLNear Optimal/Above Optimal LDL: 110- 129 mg/dLBorderline High LDL: 130-159 mg/dLHigh LDL: 160-189 mg/dLVery High LDL: greater than or equal to 190 mg/dL HDL Cholesterol 34(L) >40 mg/dL [facility] Comment:Desirable HDL: great er than 40 mg/dL Note: This HDL assay may give artificially low results in patients with liver disease. Blood Venous blood specimen / Unknown 12/31/2024 10:16 AM EDT 12/31/2024 1:17 PM EDT us César Silver MD LAB BLOOD ORDERABL ES Final Result [facility] [address] [place] [phone] [phone] * (ABNORMAL) Comprehensive Metabolic Panel (12/31/2024 10:16 AM EDT) Sodium 138 135 - 145 mmol/L [facility] Potassium 4.3 3.3 - 5.1 mmol/L [facility] Chloride 105 96 - 108 mmol/L [facility] Carbon Dioxide 27 22 - 29 mmol/L [facility] Anion Gap 10(L) 12 - 20 [facility] Urea Nitrogen (BUN) 7(L) 9 - 16 mg/dL [facility] Creatinine, Serum 0.64 0.5 - 1.4 mg/dL [facility] Estimated Glomerular Filt Rate >60 [facility] Comment:Chronic Kidney Disea se: Estimated GFR < 60 mL/min/1.87f4Prpohj Kidney Disease: Estimated GFR < 15 mL/min/1.73m2 Glucose 136(H) 60 - 115 mg/dL [facility] Calcium 9.2 8.4 - 10.2 mg/dL [facility] Bilirubin, Total 0.4 0.0 - 1.0 mg/dL [facility] Aspartate Amino Transferase 21 5 - 31 U/L [facility] Alanine Aminotransferase 15 0 - 31 U/L [facility] Total Protein 7.3 6.5 - 8.0 g/dL [facility] Albumin Level 4.1 3.5 - 5.0 g/dL [facility] Alkaline Phosphatase 52 39 - 117 U/L [facility] Blood Venous blood specimen / Unknown 12/31/2024 10:16 AM EDT 12/31/2024 1:17 PM EDT Result [facility] César Silver MD LAB BLOOD ORDERABL ES Final Result [facility] [address] [place] [phone] [phone] * (ABNORMAL) POCT HGB A1C (11/12/2024 11:21 AM EDT) Hemoglobin A1C 6.3(A) 4.0 - 5.7 % QC Media Lot # [id number] Lot# Expiration Date Blood 11/12/2024 11:2 1 AM EDT Result [facility] us Anisa Swann MD POINT OF CARE TEST ENTER/EDIT OR DERABLES Final Result * POCT Glucose (11/12/2024 11:20 AM EDT) Glucose Blood, POC 127 60 - 200 mg/dL [employer] Media Lot # [id number] Lot# Expiration Date ,140 Blood Capillary blood specimen / Unknown 11/12/2024 11:20 AM EDT Result Claritza Swann MD POINT OF CARE TEST ENTER/EDIT OR DERABLES Final Result * Referral to Podiatry (05/15/2024) Result Claritza Swann MD OUTPATIENT REFERRAL ORDERABLES F inal Result * ThinPrep Imaging Pap and HPV mRNA E6/E7 (12/31/2023 11:09 AM EDT) HPV nRNA E6/E7 Not Detected Not Detected [facility] Comment:Methodology: Transcr iption-Mediated AmplificationThis assay detects E6/E7 viral messenger RNA (mRNA) from 14high-risk HPV types (16,18,31,33,35,39,45,51,52,56,58,59,66,68).Cervical sources are required for HPV testing.If a vaginal source from a patient who has had atotal hysterectomy with removal of cervix wassubmitted, please contact the testing laboratoryfor alternative testing options.For additional information, please refer [email or web address](This link if provided for information/educational purposes only.)THIS TEST WAS PERFORMED AT:[facility] [address] [phone] LAMB MD SOURCE: SEE NOTE [facility] Comment:Cervix Report Status: [facility] Clinical Information: SEE NOTE [facility] Comment:Routine exam LMP: SEE NOTE [facility] Comment:12/09/2023 Prev. PAP: SEE NOTE [facility] Comment:2022 Prev. BX: SEE NOTE [facility] Comment:NONE GIVEN Statement Of Adequacy: SEE NOTE [facility] Comment:Satisfactory for raheem luation.Endocervical/transformation zone componentpresent. General Categorization: [facility] Interpretation/Result: SEE NOTE [facility] Comment:Cytology Results: Ne gative for intraepitheliallesion or malignancy. Cytology Comment SEE NOTE [facility] Comment:This Pap test has be en evaluated with computerassisted technology. [employer]icultural Specialty Grower Inside: SEE NOTE [facility] Comment:BK,CT(ASCP)CT screen ing location: [address] Review Horticultural Specialty Grower Inside: [facility] Pathologist [facility] PAP Infection [facility] See Note SEE NOTE [facility] Comment:EXPLANATORY NOTE:The Pap is a [...] AM EDT 12/31/2023 4:36 PM EDT Narrative [facility] - 01/02/2024 12:21 PM EDT SEE SCANNED RESULTS IN [id number] us Shelia JACK LAB PATHOLOGY ORDERABLES Final Result Performing Organization Address City/[facility]/ZIP Co de Phone Number [facility] [address] [place] [phone] * Hepatitis C Antibody with Reflex to HCV, RNA, Quantitative, Real-Time PCR (05/14/2023 11:58 AM EST) Hepatitis C Antibody Nonreactive Nonreactive [facility] Comment:Antibodies to HCV no t detected; does not exclude early acuteHCV infection. Blood Venous blood specimen / Unknown 05/14/2023 11:58 AM EST 05/14/2023 1:31 PM EST us Anisa Swann MD LAB BLOOD ORDERABLES Final Resul t Performing Organization Address [facility] Co de Phone Number [facility] [address] [place] [phone] from Last 3 Months or Most Recently Relevant to Health Maintenance Insurance [facility] F[facility] LIMITED DENTAL-[facility] MEDICAID LIMITED ADULT DENTAL - N FULL (MEDICAID) Care Teams Clerk To Justice Relationship Specialty Start Date End Date César Caba MD [address] [place] [phone] PCP - General Internal Medicine 12/17/24
--- OUTSIDE RECORDS SUMMARY | 2025-01-12 18:48 | XMS_ITS | Encounter Summary ---
Author Organization [employer] Address 75 [facility] 7t [place] [address] Care Team Providers Care Armature Balancer Name Role Phone Anisa Swann MD Primary Care Provider César Caba MD Primary Care Prov ider Reason for Visit * Reason Onset Date Comments Nurse Triage 07/14/2024 Encounter Details Date Type Department Care Team (Late st Contact Info) Description 07/14/2024 Telephone [facility] MEDICINE [address] [place] [address] Anisa Swann MD [address] [place] [address] Nurse Triage Social History Tobacco Use Types [...] last week. Disposition reviewed and appt in [facility] offered and declined due to late day. [facility] Walk In Center hours and availability provided [...] more questions * Telephone Encounter - Anastasiya Godoyaly Medina - 07/14/2024 8:28 AM EDT Symptoms: Body Aches, Earache, Nausea But No Vomiting, Outer Ear Symptoms - Not From Injury, Cough,Fever Outcome: Schedule a same-day appointment or talk to a nurse or provider today Reason: Caller denied all higher acuity questions The caller accepted this outcome. [phone] *denied strategy execution consultant documented in this encounter Plan of Treatment Upcoming Encounters Date Type Department Care Team (Late st Contact Info) Description 05/08/2025 10:00 AM EST Office Visit [facility] ADULT D[facility]AL [address] [place] [address] Barbara Clarke documented as of this encounter Visit Diagnoses Not on filedocumented in this encounter Care Teams Armature Balancer Relationship Specialty Start Date End Date Ainsa Swann MD [address] [place] [address] PCP - General Family Medicine 04/07/15 12/16/24 César Caba MD [address] [place] [address] PCP - General Internal Medicine 12/17/24 documented as of this encounter
--- OUTSIDE RECORDS SUMMARY | 2025-01-12 18:48 | XMS_ITS | Encounter Summary ---
Author Organization [employer] Address 75 [facility] 7t [place] [address] Care Team Providers Care Transfer Table Operator Helper Name Role Phone Anisa Swann MD Primary Care Provider [phone] César Caba MD Primary Care Prov ider Reason for Visit * Reason Onset Date Comments Med Refill 10/20/2024 Encounter Details Date Type Department Care Team (Late st Contact Info) Description 10/20/2024 Refill [facility]ED[facility] [address] [place], [place] [phone] Anisa Swann MD [address] [place], [place] [phone] Social History Tobacco Use Types Packs/Day Years [...] Description 05/08/2025 10:00 AM EST Office Visit [facility] ADULT DENTAL [address] [place] [address] Barbara Clarke documented as of this encounter Visit Diagnoses Not on filedocumented in this encounter Care Teams Transfer Table Operator Helper Relationship Specialty Start Date End Date Anisa Swann MD [address] [place] [address] PCP - General Family Medicine 04/07/15 12/16/24 César Caba MD [address] [place] [address] PCP - General Internal Medicine 12/17/24 documented as of this encounter
--- OUTSIDE RECORDS SUMMARY | 2025-01-12 18:48 | XMS_ITS | Encounter Summary ---
Author Organization [employer] Address [address] [facility] 7t [place] [address] Care Team Providers Care Commutator Inspector Name Role Phone Anisa Swann MD Primary Care Provider [phone] César Caba MD Primary Care Prov ider Reason for Visit * Reason Onset Date Comments Med Refill 05/28/2024 Encounter Details Date Type Department Care Team (Late st Contact Info) Description 05/28/2024 Refill [facility] [address] [place], [place] [phone] Anisa Swann MD [address] [place], [place] [phone] Social History Tobacco Use Types Packs/Day Years [...] Description 05/08/2025 10:00 AM EST Office Visit [facility] [address] [place] [address] Barbara Clarke documented as of this encounter Visit Diagnoses Not on filedocumented in this encounter Care Teams Commutator Inspector Relationship Specialty Start Date End Date Anisa Swann MD [address] [place] [address] PCP - General Family Medicine 04/07/15 12/16/24 César Caba MD [address] [place] [address] PCP - General Internal Medicine 12/17/24 documented as of this encounter
== END 2025-01-12 16:19 | disposition home or self-care (01) ==
LOC: HO.HHCLNP 16:18
PROVIDERS: Visit Provider Advanced Practice Midwife
DX: Z12.4 Encounter for screening for malignant neoplasm of cervix (principal); Z11.51 Encounter for screening for human papillomavirus (HPV)
CPT/HCPCS: 87626; 88175

== ENCOUNTER 2025-04-24 11:58 | Outpatient (REF) | payer MEDICAID, OTHER, SELFPAY ==
--- OUTSIDE RECORDS SUMMARY | 2025-04-24 10:45 | XMS_ITS | Encounter Summary ---
Author Organization [employer] Address [address] [place] [address] [address], [place] [address] Care Team Providers Care Otr Hazmat Company Driver Name Role Phone César Caba MD Primary Care Prov ider Reason for Referral * Consultation (Routine) - Pending Review Specialty Diagnoses / Procedures Referred By Promise castorena Referred To Contact Sleep Medicine Diagnoses Obstructive sleep apnea syndrome César Caba MD [address] [place] [address] Phone: tel: fax: Referral ID Status Reason Start Date Expiration Date Visits Requested Visits Authorized [id number] Pending Review Specialty Services Required 04/24/2026 1 1 Encounter Details Date Type Department Care Team (Latest Contact Info) Description 04/24/2025 10:45 AM EST Office Visit [facility] MED & PEDS [address] [place] [address] César Caba MD [address] [place] [address] Mixed hyperlipidemia (Primary Dx); Type 2 diabetes mellitus with hyperglycemia, without long-term current use of insulin (HCC); Cough variant asthma; Dietary counseling; Exercise counseling; Obstructive sleep apnea syndrome Social History Tobacco Use Types Packs/Day Years [...] Sign Reading Time Taken Comments Blood Pressure 142/96 04/24/2025 11:04 AM EST Pulse 88 04/24/2025 11:04 AM EST Temperature 37.1 C (98.7 F) 04/24/2025 11:04 AM EST Respiratory Rate 20 04/24/2025 11:04 AM EST Oxygen Saturation - - Inhaled Oxygen Concentration - - Weight 87.1 kg (192 lb) 04/24/2025 11:04 AM EST Height 165.1 cm (5' 5 ) 04/24/2025 11:04 AM EST Body Mass Index 31.95 04/24/2025 11:04 AM EST documented in this encounter Progress Notes * Nathalie Gill MA - 04/24/2025 10:45 AM EST * César Silver MD - 04/24/2025 10:45 AM EST Subjective Patient ID: Paula Rivera is a 39 y.o. female who presents for No chief complaint on file.. Diabetes She presents for her follow-up diabetic visit. She has type 2 diabetes mellitus. Her disease coursehas been stable. Pertinent negatives for diabetes include no fatigue, no foot paresthesias, no footulcerations, no polydipsia, no polyphagia and no polyuria. Review of Systems Constitutional: Negative for fatigue. Endocrine: Negative for polydipsia, polyphagia and polyuria. Objective Physical Exam Constitutional: Appearance: Normal appearance. Cardiovascular: Rate and Rhythm: Normal rate. Heart sounds: No murmur heard. Pulmonary: Effort: Pulmonary effort is normal. No respiratory distress. Breath sounds: No stridor. No wheezing or rhonchi. Abdominal: General: Abdomen is flat. There is no distension. Palpations: There is no mass. Tenderness: There is no abdominal tenderness. Hernia: No hernia is present. Neurological: General: No focal deficit present. Mental Status: She is alert and oriented to person, place, and time. Psychiatric: Mood and Affect: Mood normal. Behavior: Behavior normal. Assessment/Plan Problem List Items Addressed This Visit Type 2 diabetes mellitus with hyperglycemia, without long-term current use of insulin (HCC) Will start on mounjaro, glucose levels have been increasing, she is on metformin Relevant Medications Tirzepatide (Mounjaro) 2.5 MG/0.5ML solution auto-injector Other Relevant Orders POCT Glucose (Completed) Mixed hyperlipidemia - Primary Will order new labs for guidance of therapy, continue lifestyle modifications Relevant Medications Tirzepatide (Mounjaro) 2.5 MG/0.5ML solution auto-injector Other Relevant Orders Comprehensive Metabolic Panel Lipid Panel, Standard Cough variant asthma Other Visit Diagnoses Dietary counseling Relevant Medications Tirzepatide (Mounjaro) 2.5 MG/0.5ML solution auto-injector Exercise counseling Relevant Medications Tirzepatide (Mounjaro) 2.5 MG/0.5ML solution auto-injector Obstructive sleep apnea syndrome Relevant Orders Referral to Sleep Medicine documented in this encounter Miscellaneous Notes * Assessment & Plan Note - César Silver MD - 04/24/2025 12:23 PM ESTAssociated Problem(s): Type 2 diabetes mellitus with hyperglycemia, without long-term current use of insulin (HCC) Will start on mounjaro, glucose levels have been increasing, she is on metformin * Assessment & Plan Note - César Silver MD - 04/24/2025 12:22 PM ESTAssociated Problem(s): Mixed hyperlipidemia Will order new labs for guidance of therapy, continue lifestyle modifications documented in this encounter Plan of Treatment Upcoming Encounters Date Type Department Care Team (Late st Contact Info) Description 05/12/2025 10:15 AM EST Office Visit [facility] ADULT DENTAL [address] [place] [address] Barbara Clarke 06/09/2025 10:00 AM EST Office Visit [facility] OPTOMET[facility] [address] [place] [address] Laurel Jewell, OD [address] [place] [address] Scheduled Orders Name Type Priority Associated Diagnoses Orde r Schedule Comprehensive Metabolic Panel Lab Routine Mixed hyperlipidemia Expected: 04/24/2025 (Approximate), Expires: 04/24/2026 Lipid Panel, Standard Lab Routine Mixed hyperlipidemia Expected: 04/24/2025 (Approximate), Expires: 04/24/2026 Scheduled Referrals Name Type Priority Associated Diagnoses Orde r Schedule Referral to Sleep Medicine Outpatient Referral Routine Obstructive sleep apnea syndrome Expected: 04/24/2025 (Approximate), Expires: 04/24/2026 documented as of this encounter Goals Goal Patient Goal Type Associated Problems Recent Progress Patient-Stated? Author Help patients manage their type 2 diabetes Care Plan Help patients manage their type 2 diabetes Glenna Lynn Patient has chronic kidney disease Care Plan Patient has chronic kidney disease No Glenna Ortiz Patient has chronic kidney disease Care Plan Patient has chronic kidney disease Nathalie Hernandez MA documented as of this encounter Procedures Procedure Name Priority Date/Time Associated Diagnosis Comments POCT GLUCOSE Routine 04/24/2025 11:09 AM EST Type 2 diabetes mellitus with hyperglycemia, without long-term current use of insulin (HCC) documented in this encounter Results * POCT Glucose (04/24/2025 11:09 AM EST) Glucose Blood, POC 143 60 - 200 mg/dL QC Media Lot # [id number] Lot# Expiration Date ,417 Blood Capillary blood specimen / Unknown 04/24/2025 11:09 AM EST César Silver MD POINT OF C ARE TEST ENTER/EDIT ORDERABLES Edited Result - Final documented in this encounter Visit Diagnoses Diagnosis Mixed hyperlipidemia- Primary Type 2 diabetes mellitus with hyperglycemia, without long-term current use of insulin (HCC) Cough variant asthma Dietary counseling Dietary surveillance and counseling Exercise counseling Obstructive sleep apnea syndrome Obstructive sleep apnea (adult) (pediatric) documented in this encounter Additional Health Concerns Active Problems Noted Date Diagnosed Date Help patients manage their type 2 diabetes 04/17 Patient has chronic kidney disease 04/17/2025 Patient has chronic kidney disease 04/24/2025 Assessment Noted Time PHQ-9 Depression Total Score: 0 01/13/20 10:43 AM EDT documented as of this encounter Care Teams Otr [employer] Company Driver Relationship Specialty Start Date End Date César Caba MD [address] [place] [address] PCP - General Internal Medicine 12/17/24 documented as of this encounter
--- OUTSIDE RECORDS SUMMARY | 2025-04-24 14:04 | XMS_ITS | Encounter Summary ---
Author Organization [employer] Address [address] [facility] 7t [place] [address] Care Team Providers Care Dental Nurse Name Role Phone Anisa Swann MD Primary Care Provider [phone] César Caba MD Primary Care Prov ider Reason for Visit * Reason Onset Date Comments Med Refill 10/20/2024 Encounter Details Date Type Department Care Team (Late st Contact Info) Description 10/20/2024 Refill [facility] MED & PEDS [address] [place], [place] [phone] Anisa Swann MD [address] [place], [place] [phone] Social History Tobacco Use Types Packs/Day Years [...] Description 05/12/2025 10:15 AM EST Office Visit [facility] ADULT D[facility]AL [address] [place] [address] Barbara Clarke 06/09/2025 10:00 AM EST Office Visit [facility] OPTOMETRY [address] [place], [place] [phone] TarLaurel arthur, OD [address] [place] [address] documented as of this encounter Visit Diagnoses Not on filedocumented in this encounter Care Teams Dental Nurse Relationship Specialty Start Date End Date Anisa Swann MD [address] [place] [address] PCP - General Family Medicine 04/07/15 12/16/24 César Caba MD [address] [place] [address] PCP - General Internal Medicine 12/17/24 documented as of this encounter
--- OUTSIDE RECORDS SUMMARY | 2025-04-24 14:04 | XMS_ITS | Encounter Summary ---
Author Organization [employer] Address [address] [facility] 7t [place] [address] Care Team Providers Care Flue Blower Name Role Phone Anisa Swann MD Primary Care Provider [phone] César Caba MD Primary Care Prov ider Reason for Visit * Reason Onset Date Comments Med Refill 04/14/2024 Encounter Details Date Type Department Care Team (Late st Contact Info) Description 04/14/2024 Refill [facility] [address] [place] [address] Shelia Weldon, CN [address] [place], [place] [phone] Social History Tobacco Use Types Packs/Day Years [...] Description 05/12/2025 10:15 AM EST Office Visit [facility] ADULT DENTAL [address] [place] [address] Barbara Clarke 06/09/2025 10:00 AM EST Office Visit [facility] OPTOM[facility] [address] [place], [place] [phone] Laurel Jewell, OD [address] [place], [place] [phone] documented as of this encounter Visit Diagnoses Not on filedocumented in this encounter Care Teams Flue Blower Relationship Specialty Start Date End Date Anisa Swann MD [address] [place] [address] PCP - General Family Medicine 04/07/15 12/16/24 César Caba MD [address] [place] [address] PCP - General Internal Medicine 12/17/24 documented as of this encounter
--- OUTSIDE RECORDS SUMMARY | 2025-04-24 14:04 | XMS_ITS | Encounter Summary ---
Author Organization [employer] Address [address] [facility] 7t [place] [address] Care Team Providers Care Clay Temperer Name Role Phone Anisa Swann MD Primary Care Provider [phone] César Caba MD Primary Care Prov ider Encounter Details Date Type Department Care Team (Late st Contact Info) Description 11/19/2023 Orders Only [facility] CH[facility] MED & PEDS [address] [place], [place] [phone] César Caba MD 505 [place] [address] Social History Tobacco Use Types Packs/Day Years [...] Description 05/12/2025 10:15 AM EST Office Visit [facility] CH[facility] ADULT DENTAL [address] [place] [address] Barbara Clarke 06/09/2025 10:00 AM EST Office Visit [facility] OPTOMETRY [address] [place] [address] Laurel Jewell, OD [address] [place] [address] documented as of this encounter Visit Diagnoses Not on filedocumented in this encounter Care Teams Clay Temperer Relationship Specialty Start Date End Date Anisa Swann MD 230 [place] [address] PCP - General Family Medicine 04/07/15 12/16/24 César Caba MD 505 [place] [address] PCP - General Internal Medicine 12/17/24 documented as of this encounter
--- OUTSIDE RECORDS SUMMARY | 2025-04-24 14:04 | XMS_ITS | Encounter Summary ---
Author Organization [employer] Address [address] [facility] 7 [place] [address] Care Team Providers Care Packaging Supervisor Name Role Phone César Caba MD Primary Care Prov ider Reason for Visit * Reason Onset Date Comments Med Refill 01/30/2025 Encounter Details Date Type Department Care Team ([facility] st Contact Info) Description 01/30/2025 Refill [facility] MED & PEDS [address] [place] [address] César Caba MD [address] [place] [address] Social History Tobacco Use Types Packs/Day Years [...] Description 05/12/2025 10:15 AM EST Office Visit [facility] ADULT DENTAL [address] [place] [address] Barbara Clarke 06/09/2025 10:00 AM EST Office Visit [facility] OPTOMET[facility] [address] [place], [place] [phone] TarLaurel arthur, OD [address] [place] [address] documented as of this encounter Visit Diagnoses Not on filedocumented in this encounter Additional Health Concerns Assessment Noted Time PHQ-9 Depression Total Score: 0 01/13/20 25 10:43 AM EDT documented as of this encounter Care Teams Packaging Supervisor Relationship Specialty Start Date End Date César Caba MD [address] [place] [address] PCP - General Internal Medicine 12/17/24 documented as of this encounter
--- OUTSIDE RECORDS SUMMARY | 2025-04-24 14:04 | XMS_ITS | Encounter Summary ---
Author Organization [employer] Address 75 [facility] 7t [place] [address] Care Team Providers Care Boot Liner Maker Name Role Phone Anisa Swann MD Primary Care Provider [phone] César Caba MD Primary Care Prov ider Reason for Visit * Reason Comments Med Refill Encounter Details Date Type Department Care Team (Late st Contact Info) Description 12/10/2024 Refill [facility] [address] [place] [address] Shelia Weldon CNM [address] [place] [address] Social History Tobacco Use Types Packs/Day Years Used Date Smoking Tobacco: Never Passive Smoke Exposure: Never Smokeless Tobacco: Never Alcohol Use Standard Drinks/Week Comments Never 0 (1 standard drink = 0.6 oz pur e alcohol) Housing Stability Answer Date Recorded What is your housing situation today? I have insha robbins 11/12/[address] you [...] Description 05/12/2025 10:15 AM EST Office Visit [facility] ADULT DENTAL [address] [place] [address] Barbara Clarke 06/09/2025 10:00 AM EST Office Visit [facility] OPTOMETRY [address] [place], [place] [phone] Laurel Jewell, OD [address] [place] [address] documented as of this encounter Visit Diagnoses Not on filedocumented in this encounter Care Teams Boot Liner Maker Relationship Specialty Start Date End Date Anisa Swann MD [address] [place] [address] PCP - General Family Medicine 04/07/15 12/16/24 César Caba MD [address] [place] [address] PCP - General Internal Medicine 12/17/24 documented as of this encounter
--- OUTSIDE RECORDS SUMMARY | 2025-04-24 14:04 | XMS_ITS | Encounter Summary ---
Author Organization [employer] Address [address] [facility] 7t [place] [address] Care Team Providers Care Drop Wire Aligner Name Role Phone Anisa Swann MD Primary Care Provider [phone] César Caba MD Primary Care Prov ider Encounter Details Date Type Department Care Team (Late st Contact Info) Description 12/10/2024 Orders Only [facility] CHC MED & PEDS [address] [place], [place] [phone] César Caba MD 505 [place] [address] Social History Tobacco Use Types Packs/Day Years [...] Description 05/12/2025 10:15 AM EST Office Visit [facility] CH[facility] ADULT DENTAL [address] [place] [address] Barbara Clarke 06/09/2025 10:00 AM EST Office Visit [facility] OPTOMETRY [address] [place], [place] [phone] Laurel Jewell, OD [address] [place] [address] documented as of this encounter Visit Diagnoses Not on filedocumented in this encounter Care Teams Drop Wire Aligner Relationship Specialty Start Date End Date Anisa Swann MD [address] [place] [address] PCP - General Family Medicine 04/07/15 12/16/24 César Caba MD 505 [place] [address] PCP - General Internal Medicine 12/17/24 documented as of this encounter
--- OUTSIDE RECORDS SUMMARY | 2025-04-24 14:04 | XMS_ITS | Encounter Summary ---
Author Organization [employer] Address [address] [facility] 7t [place] [address] Care Team Providers Care Head Of Maintenance Name Role Phone Anisa Swann MD Primary Care Provider [phone] César Caba MD Primary Care Prov ider Reason for Visit * Reason Onset Date Comments Med Refill 12/26/2023 Encounter Details Date Type Department Care Team (Late st Contact Info) Description 12/26/2023 Refill [facility] CH[facility] MED & PEDS [address] [place], [place] [phone] César Caba MD [address] [place], [place] [phone] Social History Tobacco Use Types Packs/Day Years [...] Description 05/12/2025 10:15 AM EST Office Visit [facility] CH[facility] ADULT DENTAL [address] [place] [address] Barbara Clarke 06/09/2025 10:00 AM EST Office Visit [facility] OPTOMETRY [address] [place] [address] Laurel Jewell, OD [address] [place] [address] documented as of this encounter Visit Diagnoses Not on filedocumented in this encounter Care Teams Head Of Maintenance Relationship Specialty Start Date End Date Anisa Swann MD [address] [place] [address] PCP - General Family Medicine 04/07/15 12/16/24 César Caba MD [address] [place] [address] PCP - General Internal Medicine 12/17/24 documented as of this encounter
--- OUTSIDE RECORDS SUMMARY | 2025-04-24 14:04 | XMS_ITS | Encounter Summary ---
Author Organization [employer] Address [address] [facility] 7t [place] [address] Care Team Providers Care Steam Table Worker Name Role Phone Anisa Swann MD Primary Care Provider [phone] César Caba MD Primary Care Prov ider Encounter Details Date Type Department Care Team (Late st Contact Info) Description 02/28/2024 Orders Only [facility] CHC MED & PEDS [address] [place], [place] [phone] César Caba MD [address] [place] [address] Social History Tobacco Use Types Packs/Day Years [...] Description 05/12/2025 10:15 AM EST Office Visit [facility] CHC ADULT DENTAL [address] [place] [address] Barbara Clarke 06/09/2025 10:00 AM EST Office Visit [facility] OPTOMETRY [address] [place] [address] Laurel Jewell, OD [address] [place] [address] documented as of this encounter Visit Diagnoses Not on filedocumented in this encounter Care Teams Steam Table Worker Relationship Specialty Start Date End Date Anisa Swann MD [address] [place] [address] PCP - General Family Medicine 04/07/15 12/16/24 César Caba MD [address] [place] [address] PCP - General Internal Medicine 12/17/24 documented as of this encounter
--- OUTSIDE RECORDS SUMMARY | 2025-04-24 14:04 | XMS_ITS | Encounter Summary ---
Author Organization [employer] Address [address] [facility] 7t [place] [address] Care Team Providers Care Implant Coordinator Name Role Phone César Caba MD Primary Care Prov ider Encounter Details Date Type Department Care Team (Latest Contact Info) Description 04/24/2025 Travel Social History Tobacco Use Types Packs/Day [...] Description 05/12/2025 10:15 AM EST Office Visit [facility] CHC ADULT DENTAL 505 [place], [place] [phone] Barbara Clarke 06/09/2025 10:00 AM EST Office Visit [facility] OPTOMETRY [address] [place], [place] [phone] TarkaLaurel, OD [address] [place] [address] documented as of this encounter Goals Goal [...] Hernandez [place] documented as of this encounter Visit Diagnoses Not on filedocumented in this encounter Additional Health Concerns Active Problems Noted Date Diagnosed Date Help patients manage their type 2 diabetes 04/17 Patient has chronic kidney disease 04/17/2025 Patient has chronic kidney disease 04/24/2025 Assessment Noted Time PHQ-9 Depression Total Score: 0 01/13/20 10:43 AM EDT documented as of this encounter Care Teams Implant Coordinator Relationship Specialty Start Date End Date César Caba MD [address] [place] [address] PCP - General Internal Medicine 12/17/24 documented as of this encounter
--- OUTSIDE RECORDS SUMMARY | 2025-04-24 14:04 | XMS_ITS | Patient Health Record ---
Author Organization [facility] Address [address] [facility] [place] [address] Care Team Providers Care Emergency Medical Dispatcher Name Role Phone Anisa Swann Primary Care Provider Michelle Ovalle Unavailable [phone] Reason For Referral No Information Medications Medication [...]
--- OUTSIDE RECORDS SUMMARY | 2025-04-24 14:04 | XMS_ITS | Encounter Summary ---
Author Organization [employer] Address [address] [facility] 7t [place] [address] Care Team Providers Care Upholsterer Apprentice Name Role Phone Céasr Caba MD Primary Care Prov ider Reason for Visit * Reason Onset Date Comments Med Refill 01/30/2025 Encounter Details Date Type Department Care Team (Late st Contact Info) Description 01/30/2025 Refill [facility] CH[facility] MED & PEDS [address] [place] [address] Anisa Swann MD [address] [place] [address] Social History Tobacco Use Types Packs/Day Years [...] 10:15 AM EST Office Visit [facility] CHC ADULT DENTAL [address] [place] [address] Barbara Clarke 06/09/2025 10:00 AM EST Office Visit [facility] OPTOMETRY [address] [place], [place] [phone] Laurel Jewell, OD [address] [place] [address] documented as of this encounter Visit Diagnoses Not on filedocumented in this encounter Additional Health Concerns Assessment Noted Time PHQ-9 Depression Total Score: 0 01/13/20 10:43 AM EDT documented as of this encounter Care Teams Upholsterer Apprentice Relationship Specialty Start Date End Date César Caba MD [address] [place] [address] PCP - General Internal Medicine 12/17/24 documented as of this encounter
--- OUTSIDE RECORDS SUMMARY | 2025-04-24 14:04 | XMS_ITS | Clinical Summary ---
Author Organization [facility] Address [address] [place] [address] Care Team Providers Care Sliding Joint Maker Name Role Phone César Caba MD Primary Care Prov ider Allergies No known active allergies Medications fexofenadine (LD) 180 mg tablet Take 180 mg by mouth as needed. Active diphenhydrAMINE (BENADRYL) 25 mg capsule Take 25 mg by mouth as needed. Active Active Problems Problem Noted Date Diagnosed Date Abdominal wall bulge 01/21/2021 Irritation of external ear canal, right 10/11/19 18 Encounters Date Type Department Care Team Description 02/26/2025 Transcribe Orders [facility] Physician Referral Services [address] [place] [address] César Caba MD Hives (Primary Dx) from Last 3 Months Social History Tobacco [...] Metabolic Panel 09/10/2024 09/11/2023 Influenza Vaccine (#1) 2024 , 02/06/2023, 02/06/2022, Additional history exists COVID-19 Vaccine (3 - 2024-2 6 season) 2025 01/18/2021, 12/28/2020 Cervical Cancer Screening 12/26/2025 Pap Smear 12/26/2025 12/26/2022 DTaP,Tdap,and Td Vaccines (3 - Td or Tdap) 05/19/2026 05/19/2016, 11/21/2013 HIV Screening Completed 05/14/2023 Hepatitis C Screening Completed 05/14/2023 Insurance [employer] HSNO/FREE CARE Care Teams Sliding Joint Maker Relationship Specialty Start Date End Date César Caba MD [address] [place] [address] PCP - General Internal Medicine 02/26/25
--- OUTSIDE RECORDS SUMMARY | 2025-04-24 14:05 | XMS_ITS | Encounter Summary ---
Author Organization [employer] Address [address] [facility] 7t [place] [address] Care Team Providers Care Instrument Specialist Name Role Phone Anisa Swann MD Primary Care Provider [phone] César Caba MD Primary Care Prov ider Reason for Visit * Reason Onset Date Comments Med Refill 05/28/2024 Encounter Details Date Type Department Care Team (Late st Contact Info) Description 05/28/2024 Refill [facility] MED & PEDS [address] [place], [place] [phone] Anisa Swann MD [address] [place], [place] [phone] Social History Tobacco Use Types Packs/Day Years [...] Description 05/12/2025 10:15 AM EST Office Visit [facility] CHC ADULT DENTAL [address] [place] [address] Barbara Clarke 06/09/2025 10:00 AM EST Office Visit [facility] OPTOMETRY [address] [place], [place] [phone] TarLaurel arthur, OD [address] [place] [address] documented as of this encounter Visit Diagnoses Not on filedocumented in this encounter Care Teams Instrument Specialist Relationship Specialty Start Date End Date Anisa Swann MD [address] [place] [address] PCP - General Family Medicine 04/07/15 12/16/24 César Caba MD [address] [place] [address] PCP - General Internal Medicine 12/17/24 documented as of this encounter
--- OUTSIDE RECORDS SUMMARY | 2025-04-24 14:05 | XMS_ITS | Encounter Summary ---
Author Organization [employer] Address [address] [facility] 7t [place] [address] Care Team Providers Care Fixed Income Portfolio Manager Name Role Phone Anisa Swann MD Primary Care Provider [phone] César Caba MD Primary Care Prov ider Reason for Visit * Reason Onset Date Comments Nurse Triage 07/14/2024 Encounter Details Date Type Department Care Team (Late st Contact Info) Description 07/14/2024 Telephone [facility] MEDICINE [address] [place] [address] Anisa Swann MD [address] [place] [address] Nurse Triage Social History Tobacco Use Types [...] reviewed and appt in [facility] offered and declined due to late day. [facility] Walk In Center hours and availability [...] acuity questions The caller accepted this outcome. 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 documented in this encounter Plan of Treatment Upcoming Encounters Date Type Department Care Team (Late st Contact Info) Description 05/12/2025 10:15 AM EST Office Visit [facility] CHC ADULT DENTAL [address] [place] [address] Barbara Clarke 06/09/2025 10:00 AM EST Office Visit [facility] OPTOMETRY [address] [place], [place] [phone] Laurel Jewell, OD [address] [place] [address] documented as of this encounter Visit Diagnoses Not on filedocumented in this encounter Care Teams Fixed Income Portfolio Manager Relationship Specialty Start Date End Date Anisa Swann MD [address] [place] [address] PCP - General Family Medicine 04/07/15 12/16/24 César Caba MD [address] [place] [address] PCP - General Internal Medicine 12/17/24 documented as of this encounter
--- OUTSIDE RECORDS SUMMARY | 2025-04-24 14:05 | XMS_ITS | Clinical Summary ---
Author Organization [employer] Address [address] [facility] 7t [place] [address] Care Team Providers Care What Job Titles Mean Name Role Phone César Caba MD Primary Care Prov ider Allergies No known active allergies Medications albuterol 108 (90 Base) MCG/ACT inhaler Inhale 2 puffs every 4 (four) hours if needed for wheezing. 18 g 03/05/20 24 Active fexofenadine (Taylor) 180 MG tablet Take 180 mg by mouth if needed. Active ibuprofen 600 MG tablet TAKE ONE TABLET BY MOUTH THREE TIMES DAILY 90 tablet 10/07/19 25 Active Drospirenone (Slynd) 4 MG tablet Take 1 tablet by mouth Once per day. 28 tablet 11 01/13/20 25 Active atorvastatin (Lipitor) 10 MG tablet Take 1 tablet (10 mg) by mouth Once per day. 30 tablet 11 01/31/20 25 026 Active metFORMIN (Glucophage) 500 MG tablet TAKE 1 TABLET BY MOUTH WITH BREAKFAST 90 tablet 3 02/06/20 25 Active Tirzepatide (Mounjaro) 2.5 MG/0.5ML solution auto-injector Inject 2.5 mg under the skin 1 (one) time per week. 2 mL 3 04/24/20 25 Active terbinafine (LamISIL) 250 MG tablet Take 1 tablet (250 mg) by mouth Once per day. 90 tablet 12/26/19 25 025 topiramate (Topamax) 50 MG tablet Take 1 tablet (50 mg) by mouth Once per day. 30 tablet 01/31/20 25 12/19/2 025 Discontinued phentermine 15 MG capsule Take 1 capsule (15 mg) by mouth before breakfast. 30 capsule 03/20/2025 11:48 AM EST 03/09/20 25 025 Discontinued Active Problems Problem Noted Date Diagnosed Date Cough variant asthma 04/24/2025 Mixed hyperlipidemia 01/30/2025 Assessment & Plan (04/24/2025 12:22 PM EST): Will order new labs for guidance of therapy, continue lifestyle modifications Assessment & Plan (02/19/2025 2:25 PM EDT): Off statin therapy, continue low cholesterol diet and exercise as tolerated, follow up with new labs Assessment & Plan (01/30/2025 9:10 AM EDT): Will start on atorvastatin 10mg, risk vs benefits discussed, follow up in 3 months Hives 01/30/2025 Assessment & Plan (01/30/2025 9:13 AM EDT): Will refer to allergy, take taylor as needed Type 2 diabetes mellitus wit h hyperglycemia, without long-term current use of insulin 11/21/2023 Assessment & Plan (04/24/2025 12:23 PM EST): Will start on mounjaro, glucose levels have been increasing, she is on metformin Assessment & Plan (02/19/2025 2:35 PM EDT): On metformin, encouraged to keep a low carb/no sugar diet, follow up in 3 months Assessment & Plan (11/21/2023 9:18 AM EDT): [...] Encounters Date Type Department Care Team Description 04/24/2025 10:45 AM EST Office Visit [facility] MED & PEDS [address] [place] [address] César Caba MD Mixed hyperlipidemia (Primary Dx); Type 2 diabetes mellitus with hyperglycemia, without long-term current use of insulin (HCC); Cough variant asthma; Dietary counseling; Exercise counseling; Obstructive sleep apnea syndrome 04/24/2025 Travel 04/17/2025 Patient Outreach [facility] [address] [place] [address] César Caba MD Pre-visit Planning (SDOH was already completed ) 03/09/2025 Orders Only [facility] [address] [place] [address] César Caba MD 02/11/2025 Telephone [employer] [address] [employer] [address] [place] [phone] César Caba MD EMG ORDER 02/04/2025 Refill [facility] [address] [place] [address] Anisa Swann MD 01/30/2025 8:30 AM EDT Office Visit [facility] [address] [place] [address] César Caba MD Mixed hyperlipidemia (Primary Dx); Encounter for immunization; Hives 01/30/2025 Refill [facility] [address] [place] [address] César Caba MD 01/30/2025 Travel 01/30/2025 Refill [facility] CHC MED & PEDS [address] [place] [address] Anisa Swann MD 01/30/2025 Refill [facility] [address] [place] [address] César Caba MD 01/27/2025 Telephone [facility] [address] [place], [place] [phone] César Caba MD Nurse Triage from Last 3 Months Immunizations Immunization Administration Dates Next Due HPV 9-Valent 07/19/2023,02/15/2023,01/15/2023 Influenza Injectable Quadriv alant Preservative Free IIV4 MDCK 02/06/2023,02/06/2022 Influenza injectable quadriv alent IIV4 with preservative 03/05/2019,02/27/2018 Influenza injectable quadriv alent preservative free 02/25/2021,01/26/2020 Influenza, Injectable, MDCK, preservative free 01/23/2024 Influenza, seasonal, injecta ble, preservative free 01/30/2025,02/21/2016 Tdap 05/19/2016,11/21/2013,11/17/2013 Family History Medical History Relation [...] 20 04/24/2025 11:04 AM EST Oxygen Saturation 98% 01/30/2025 8:43 AM EDT Inhaled Oxygen Concentration - - Weight 87.1 kg (192 lb) 04/24/2025 11:04 AM EST Height 165.1 cm (5' 5 ) 04/24/2025 11:04 AM EST Body Mass Index 31.95 04/24/2025 11:04 AM EST Plan of Treatment Upcoming Encounters Date Type Department Care Team (Late st Contact Info) Description 05/12/2025 10:15 AM EST Office Visit [facility] CHC ADULT DENTAL [address] [place] [address] Barbara Clarke 06/09/2025 10:00 AM EST Office Visit [facility] OPTOMETRY [address] [place] [address] Laurel Jewell, OD [address] [place] [address] Health Maintenance Due Date Last Done Comments HIV Screening 1985 Eye Exam 11/26/1995 Hepatitis B Vaccines (1 of 3 - 19+ 3-dose series) 2004 Pneumococcal Vaccine: Pediatrics (0 to 5 Years) and At-Risk Patients (6 to 49) Years (1 of 2 - PCV) 2004 COVID-19 Vaccine ( - 2024- season) 2025 01/18/2021, 12/28/2020 Dental X-Ray: Bitewings 04/19/2025 04/18/20, 07/15/2019, 03/25/2019, Additional history exists Dental Prophylaxis [...] 04/22/2027 024, 04/18/2024, 03/25/2019, Additional history exists Cervical Cancer Screening 01/13/2028 HPV/Cotest 01/13/2028 01/12/2025, 12/06, 12/26/2022, Additional history exists Pap Smear 01/13/2028 01/12/2025, 12/06, 12/26/2022, Additional history exists Zoster Vaccines (1 of 2) 11/26/2035 RSV Patients and Patients Aged 60 years or older (1 - 1-dose 75+ series) 2060 Hepatitis C Screening Completed 05/14/2023 HPV Vaccines Completed 07/19/2023, 02/04, 01/15/2023 Influenza Vaccine Completed 01/30/2025, , 02/06/2023, Additional history exists HIB Vaccines Aged Out [...] on patient's age to complete this topic Goals Goal Patient Goal Type Associated Problems Recent Progress Patient-Stated? Author Help patients manage their type 2 diabetes Care Plan Help patients manage their type 2 diabetes No Glenna Ortiz Patient has chronic kidney disease Care Plan Patient has chronic kidney disease No Glenna Ortiz Patient has chronic kidney disease Care Plan Patient has chronic kidney disease No Nathalie Gill MA Procedures Procedure Name Priority Date/Time Associated Diagnosis Comments POCT GLUCOSE Routine 04/24/2025 11:09 AM EST Type 2 diabetes mellitus with hyperglycemia, without long-term current use of insulin (HCC) HPV DNA, LOW/HIGH RISK Routine 01/12/2025 12:00 AM EDT PAP SMEAR Routine 01/12/2025 12:00 AM EDT Cervical cancer screening ALBUMIN, RANDOM URINE W/CREATININE Routine 12/31/2024 10:25 AM EDT Type 2 diabetes mellitus with hyperglycemia, without long-term current use of insulin ([facility]) LIPID PANEL, STANDARD Routine 12/31/2024 10:16 AM EDT Type 2 diabetes mellitus with hyperglycemia, without long-term current use of insulin ([facility]) PERIODIC ORAL EVALUATION - ESTABLISHED PATIENT Routine 11/18/2024 10:00 AM EDT Dental caries POCT GLYCATED HEMOGLOBIN, TOTAL Routine 11/12/2024 11:21 AM EDT Type 2 diabetes mellitus with hyperglycemia, without long-term current use of insulin ([facility]) PROPHYLAXIS - ADULT Routine 10/28/2024 1 0:00 AM EDT AMB REFERRAL TO PODIATRY Urgent 05/15/2024 Type 2 diabetes mellitus with hyperglycemia, without long-term current use of insulin ([facility]) PANORAMIC RADIOGRAPHIC IMAGE Routine 04/21/2024 11:00 AM EST Dental caries Pain due to dental caries INTRAORAL - COMPLETE SERIES OF RADIOGRAPHIC IMAGES Routine 04/18/2024 10:00 AM EST HEPATITIS C AB W/REFL TO HCV RNA, QN, PCR Routine 05/14/2023 11:58 AM EST PE (physical exam), annual from Last 3 Months or Most Recently Relevant to Health Maintenance Results * POCT Glucose (04/24/2025 11:09 AM EST) Glucose Blood, POC 143 60 - 200 mg/dL QC Media Lot # [id number] Lot# Expiration Date Blood Capillary blood specimen / Unknown 04/24/2025 11:09 AM EST César [place] MD POINT OF C ARE TEST ENTER/EDIT ORDERABLES Edited Result - Final * HPV DNA, Low/High Risk (01/12/2025 12:00 AM EDT) HPV High Risk Negative Negative [facility] HPV Genotype 16 Negative Negative [facility] HPV Genotype 18 Negative Negative [facility] Comment:HPV testing performe d at [facility] (CLIA#[id number]), [address] [place] [id number].Testing for HPV was performed using the [employer] HARISH 6800system. The presence of HPV in the female genital tract isassociated with a number of diseases, including cervicalcarcinoma. The HPV DNA high risk pool tests for HPV 31, 33,35, 39, 45, 51, 52, 56, 58, 59, 66 and 68. The testing forHPV 16 and 18 genotypes has also been performed. A positiveresult indicates detection of nucleic acid sequences fromone or more subtypes, whereas a negative result indicatessuch sequences were not detected. 01/12/2025 01/14/2025 11: 19 AM EDT us Jessica JACK LAB BLOOD ORDERABLES Blossom l Result [facility] [address] [place] [phone] * Pap Smear (01/12/2025 12:00 AM EDT) Swab Cervix uteri structure / Unknown 01/12/2025 01/14/2025 11:19 AM EDT Narrative [facility] - 01/19/2025 1:49 PM EDT ----- ------- Name: Paula Lopez Age/Sex: 39/F : 1985 Unit#: [id number] Attend Dr: JESSICA SHEPARD CNM Re01/12/25 Status: [facility] REF Location: [facility]NP Disch: ----- ------- SPEC : [id number] RECD: 01/14/25-111 STATUS: ANTONIA TREVIZO NUM: [id number] ARMAND: 01/12/25-[address]: JESSICA SHEPARD CNM ENTERED: 01/14/25-1230 SP TYPE: Pap Smr OTHR DR: ORDERED: Pap Smear Interpretation Satisfactory for evaluation. Negative for intraepithelial lesion or malignancy. HPV High Risk: Negative HPV Genotyping 16: Negative HPV Genotyping 18: Negative Clinical Information LMP: Unknown date, Oral contraceptive Previous PAP test: 2023, NIL/HPV negative; 2022, NIL/HPV positive Other history: Cervical cancer screening Material Received ThinPrep-Vaginal/Cervical PAP Disclaimer As of February 27, 2024, the technical services to include automated prescreening performed by the ThinPrep Imaging System, PAP screening and HPV testing will be performed at [facility] (IA #[id number]), [address] [place] [address]. Testing for HPV was performed using the M-DAQAS 6800 system. The presence of HPV in the female genital tract is associated with a number of diseases, including cervical carcinoma. The HPV DNA high risk pool tests for HPV 31, 33, 35, 39, 45, 51, 52, 56, 58, 59, 66 and 68. The testing for HPV 16 and 18 genotypes has also been performed. A positive result indicates detection of nucleic acid sequences from one or more subtypes, whereas a negative result indicates such sequences were not detected. All professional services are performed by [facility] ([address] [place] [id number]; ; [place] #[id number]). The PAP Test is a screening procedure with the inherent possibility of both false negative and false positive results. Results should be interpreted in the context of historic and current clinical findings. Reliability of the PAP Test is enhanced by performing the test on a regular repetitive basis. ----- ------- Signed (signature on file) BEATA Lyon ([facility]) 01/19/25 1349 ----- ------- END OF REPORT Jessica Shepard [facility] CYTOLOGY ORDERABLES F inal Result [facility] [address] [place] [phone] * Albumin, Random Urine W/Creatinine (12/31/2024 10:25 AM EDT) Creatinine, Urine 144.77 mg/dL [facility] Microalbumin Urine 7.0 mg/L [facility] Microalbum Creatinine Ratio Ur 4.8 <30 ug/mg cr [facility] Comment:Albumin/Creatinine R atio Reference Ranges: Normal: < 30 ug/mg creatinine Microalbuminuria: 30 - 300 ug/mg creatinineClinical Albuminuria: > 300 ug/mg creatinine Urine (Urine, Random) 12/31/2024 10:25 AM EDT 12/31/2024 1:03 PM EDT us César [place] MD LAB URINE ORDERABL ES Final Result Performing Organization Address [facility]/ZIP Co de Phone Number [facility] [address] [place] [phone] * (ABNORMAL) Lipid Panel, Standard (12/31/2024 10:16 AM EDT) Triglycerides 211(H) <150 mg/dL [facility] Comment:Desirable Triglyceri de: less than 150 mg/dLBorderline High Triglyceride 150-199 mg/dLHigh Triglyceride: 200-499 mg/dLVery High Triglyceride: greater than or equal to 5OO mg/dL Cholesterol 212(H) <200 mg/dL [facility] Comment:Desirable Cholestero l: less than 200 mg/dLBorderline High Cholesterol: 200-239 mg/dLHigh Cholesterol: greater than 239 mg/dL LDL Cholesterol Calculated 136(H) <100 mg/dL [facility] Comment:Desirable LDL: less than 100 mg/dLNear Optimal/Above Optimal LDL: 110- 129 mg/dLBorderline High LDL: 130-159 mg/dLHigh LDL: 160-189 mg/dLVery High LDL: greater than or equal to 190 mg/dL HDL Cholesterol 34(L) >40 mg/dL [facility] Comment:Desirable HDL: great er than 40 mg/dL Note: This HDL assay may give artificially low results in patients with liver disease. Blood Venous blood specimen / Unknown 12/31/2024 10:16 AM EDT 12/31/2024 1:17 PM EDT us César [place] MD LAB BLOOD ORDERABL ES Final Result Performing Organization Address City/[facility]/ZIP Co de Phone Number [facility] [address] [place] [phone] * (ABNORMAL) POCT HGB A1C (11/12/2024 11:21 AM EDT) Hemoglobin A1C 6.3(A) 4.0 - 5.7 % QC Media Lot # [id number] Lot# Expiration Date Blood 11/12/2024 11:2 1 AM EDT Result Claritza Swann MD POINT OF CARE TEST ENTER/EDIT OR DERABLES Final Result * Referral to Podiatry (05/15/2024) us Anisa Swann MD OUTPATIENT REFERRAL ORDERABLES F inal Result * Hepatitis C Antibody with Reflex to HCV, RNA, Quantitative, Real-Time PCR (05/14/2023 11:58 AM EST) Hepatitis C Antibody Nonreactive Nonreactive [facility] Comment:Antibodies to HCV no t detected; does not exclude early acuteHCV infection. Blood Venous blood specimen / Unknown 05/14/2023 11:58 AM EST 05/14/2023 1:31 PM EST us Anisa Swann MD LAB BLOOD ORDERABLES Final Resul t [facility] [address] [place] [phone] from Last 3 Months or Most Recently Relevant to Health Maintenance Additional Health Concerns Active Problems Noted Date Diagnosed Date Help patients manage their type 2 diabetes 04/17 Patient has chronic kidney disease 04/17/2025 Patient has chronic kidney disease 04/24/2025 Insurance * Guarantor: Paula Lopez Account Type Relation to Patient Date of Phone Billing Address Personal/Family Self [address] [place] [address] [address] [facility] * Guarantor: Paula Lopez Account Type Relation to Patient Date of Phone Billing Address Dental Self [address] [place] [id number] [facility] MEDICA[facility] LIMITED ADULT DENTAL - HSN FULL (MEDICAID) * Guarantor: Paula Lopez Account Type Relation to Patient Date of Phone Billing Address Personal/Family Self [address] [place] [phone] * Guarantor: Paula Lopez Account Type Relation to Patient Date of Phone Billing Address Personal/Family Self [address] [place] [phone] * Guarantor: Paula Lopez Account Type Relation to Patient Date of Phone Billing Address Personal/Family Self [address] [place] [address] Care Teams What Job Titles Mean Relationship Specialty Start Date End Date César Caba MD [address] [place] [phone] PCP - General Internal Medicine 12/17/24
[2025-04-24 15:41] LABS: Alanine Aminotransferase 28 U/L (0-31); Albumin Level 4.3 g/dL (3.5-5.0); Alkaline Phosphatase 61 U/L (39-117); Anion Gap 11 (12-20); Aspartate Amino Transferase 30 U/L (5-31); Blood Urea Nitrogen 12 mg/dL (9-16); Calcium 9.6 mg/dL (8.4-10.2); Carbon Dioxide 25 mmol/L (22-29); Chloride 106 mmol/L (96-108); Cholesterol 210 mg/dL (<200); Estimated Glomerular Filt Rate > 60; HDL Cholesterol 37 mg/dL (>40); Potassium 4.4 mmol/L (3.3-5.1); Sodium 138 mmol/L (135-145); Total Protein 7.6 g/dL (6.5-8.0); Triglycerides 305 mg/dL (<150)
== END 2025-04-24 11:59 | disposition home or self-care (01) ==
LOC: HO.CHCLDS 11:58
PROVIDERS: Visit Provider Internal Medicine
DX: E78.2 Mixed hyperlipidemia (principal)
CPT/HCPCS: 36415; 80053; 80061